=== PATIENT | female | born 1970 | race Caucasian/White ===

== ENCOUNTER → 2020-07-03 | Outpatient (CLI) | payer BC ==
--- NOTE | 2020-07-04 07:23 | US ---
EXAMINATION TYPE: US venous doppler duplex LE RT DATE OF EXAM: 07/03/2020 4:33 PM COMPARISON: NONE CLINICAL HISTORY: I833.893 Varicose veins of bilateral lower extremity. SIDE PERFORMED: Right TECHNIQUE: The lower extremity deep venous system is examined utilizing real time linear array sonog [place] with graded compression, doppler sonography and color-flow sonography. VESSELS IMAGED: Common Femoral Vein Deep Femoral Vein Greater Saphenous Vein * Femoral Vein Popliteal Vein Small Saphenous Vein * Proximal Calf Veins (* superficial vessels) Right Leg: Negative for DVT IMPRESSION: 1. No evidence of deep venous thrombosis within the right lower extremity.
== END | disposition home or self-care (01) ==
LOC: RADUSWWP 16:30
PROVIDERS: ATTEND Family Medicine
DX: I83.893 Varicose veins of bilateral lower extremities with other complications (principal)

== ENCOUNTER 2022-02-07 14:04 | Emergency (ER) | payer BC ==
[2022-02-07] MEDS ORDERED: SODIUM CHLORIDE 0.9% 1,000 ML IV STA (14:30)
[2022-02-07] MEDS ORDERED: SODIUM CHLORIDE 0.9% 500 ML 500 ML IV STA (14:30)
--- NOTE | 2022-02-07 14:49 | XR ---
EXAMINATION TYPE: XR chest 2V DATE OF EXAM: 02/07/2022 COMPARISON: NONE HISTORY: Syncope TECHNIQUE: 2 views FINDINGS: Heart and mediastinum are normal. Lungs are clear. Diaphragm is normal. Bony thorax appears normal. IMPRESSION: Normal chest.
[2022-02-07 15:17] LABS: Basophils % (A) 0 %; Eosinophils # (A) 0.1 k/uL (0-0.7); Eosinophils % (A) 1 %; HCT 45.5 % (34.0-46.0); HGB 15.3 gm/dL (11.4-16.0); Lymphocytes # (A) 1.9 k/uL (1.0-4.8); Lymphocytes % (A) 19 %; MCH 30.3 pg (25.0-35.0); MCHC 33.6 g/dL (31.0-37.0); MCV 90.3 fL (80.0-100.0); Mean Platelet Volume 9.6; Monocytes # (A) 0.4 k/uL (0-1.0); Monocytes % (A) 4 %; Neutrophils # (A) 7.5 k/uL (1.3-7.7); Neutrophils % (A) 74 %; Platelet Count 238 k/uL (150-450); RBC 5.04 m/uL (3.80-5.40); RDW 12.5 % (11.5-15.5); WBC 10.1 k/uL (3.8-10.6)
--- NOTE | 2022-02-07 15:25 | US ---
EXAMINATION TYPE: US venous doppler duplex LE LT DATE OF EXAM: 02/07/2022 3:15 PM COMPARISON: NONE CLINICAL HISTORY: pain. pain in left calf x 1 month. No hx of DVT SIDE PERFORMED: Left TECHNIQUE: The lower extremity deep venous system is examined utilizing real time linear array sonog [place] with graded compression, doppler sonography and color-flow sonography. VESSELS IMAGED: Common Femoral Vein Deep Femoral Vein Greater Saphenous Vein * Femoral Vein Popliteal Vein Small Saphenous Vein * Proximal Calf Veins (* superficial vessels) Left Leg: No evidence of DVT IMPRESSION: No evidence of deep vein thrombosis in the left leg.
[2022-02-07 15:30] LABS: Partial Thromboplastin Time 23.5 sec (22.0-30.0); Prothrombin Time 10.6 sec (9.0-12.0)
--- NOTE | 2022-02-07 15:53 | ED ---
General Adult HPI - General Chief complaint: Syncope Stated complaint: near syncope, chest burning Time Seen by Provider: 02/07/22 14:24 Source: patient, RN notes reviewed Mode of arrival: ambulatory Limitations: no limitations - History of Present Illness Initial comments: 51-year-old female presents emergency Department chief complaint syncopal episode. She states she has not felt well last couple weeks. Patient states that she's had some URI symptoms. Patient was at urgent care prior to ER arrival in which she was tested for COVID-19 was negative. Patient states that she had a near syncopal episode last days for felt very flushed, dizzy states that she sat down symptoms or other resolved. She never loss conscious. She has a chest pain shortness with currently states that she's been having some palpitations. Denies any prior cardiac or lung disease. Denies any medications. She states that she's been very flushed feeling, red in her face, upper chest region. - Related Data Allergies Allergy/AdvReac Type Severity Reaction Status Date / Time No Known Allergies Allergy Verified 02/07/22 14:10 Review of Systems ROS Statement: Those systems with pertinent positive or pertinent negative responses have been documented in the HPI. ROS Other: All systems not noted in ROS Statement are negative. Past Medical History Past Medical History: Hypertension History of Any Multi-Drug Resistant Organisms: None Reported Additional Past Surgical History / Comment(s): kidney stone removal. Past Psychological History: No Psychological Hx Reported Smoking Status: Never smoker Past Alcohol Use History: None Reported Past Drug Use History: None Reported General Exam Limitations: no limitations General appearance: alert, in no apparent distress Head exam: Present: atraumatic, normocephalic, normal inspection Eye exam: Present: normal appearance, PERRL, EOMI. Absent: scleral icterus, conjunctival injection, periorbital swelling ENT exam: Present: normal exam, normal oropharynx, mucous membranes moist Neck exam: Present: normal inspection, full ROM. Absent: tenderness, meningismus, lymphadenopathy Respiratory exam: Present: normal lung sounds bilaterally. Absent: respiratory distress, wheezes, rales, rhonchi, stridor Cardiovascular Exam: Present: normal rhythm, tachycardia, normal heart sounds. Absent: systolic murmur, diastolic murmur, rubs, gallop, clicks GI/Abdominal exam: Present: soft, normal bowel sounds. Absent: distended, tenderness, guarding, rebound, rigid Neurological exam: Present: alert, oriented X3, CN II-XII intact, reflexes normal. Absent: motor sensory deficit Skin exam: Present: warm, dry, intact, normal color. Absent: rash Course Vital Signs 02/07/22 02/07/22 02/07/22 14:08 15:41 15:42 Temperature 97.6 F Pulse Rate 113 H Pulse Rate [ 84 98 Cattle Tester ] Respiratory 20 Rate Blood Pressure 182/94 Blood Pressure 150/98 [Right Arm Sitting] Blood Pressure [Right Arm Standing] Blood Pressure 151/81 [Right Arm Supine] O2 Sat by Pulse 99 Oximetry 02/07/22 02/07/22 15:43 17:47 Temperature 98.3 F Pulse Rate 79 Pulse Rate [ 105 H Cattle Tester ] Respiratory 18 Rate Blood Pressure 133/84 Blood Pressure [Right Arm Sitting] Blood Pressure 161/98 [Right Arm Standing] Blood Pressure [Right Arm Supine] O2 Sat by Pulse 96 Oximetry Medical Decision Making - Medical Decision Making Was pt. sent in by a medical professional or institution? @ Urgent care Did you speak to anyone other than the patient for history? @ None Did you review nursing and triage notes? @ Reviewed and agreed Were old charts reviewed? @ None Differential Diagnosis? @Syncope, near syncope, vertigo, dizziness, upper extremity infection, PE, DVT, hypoglycemia this is not meant to be an all-inclusive list. EKG interpreted by me (3pts min.)? @ EKG performed at 15:21 sinus rhythm rate of 87 MD 133 QRS 85 QT/QTC 339/383 X-rays interpreted by me (1pt min.)? @ Chest x-ray unremarkable CT interpreted by me (1pt min.)? @ [none] U/S interpreted by me (1pt. min.)? @ Ultrasound left leg no ACUTE DVT What testing was considered but not performed? (CT, X-rays, U/S, labs)? Why? @ none What meds were considered but not given? Why? @ [none] Did you discuss the management of the patient with other professionals? @ Attending dr carlson Did you reconcile home meds? @ [none] Was smoking cessation discussed for >3mins.? @ [none] Was critical care preformed (if so, how long)? @ [none] Were there social determinants of health that impacted care today? How? (Homelessness, low income, unemployed, alcoholism, drug addiction, transportation, low edu. Level, literacy, decrease access to med. care, shelter, rehab)? @ None Was there de-escalation of care discussed even if they declined? (Discuss DNR or withdrawal of care, Hospice)? @ No What co-morbidities impacted this encounter? (DM, HTN, Smoking, COPD, CAD, Cancer, CVA, Hep., AIDS, mental health diagnosis, sleep apnea, morbid obesity)? @ None Was patient admitted / discharged? @ [hospital course] Undiagnosed new problem with uncertain prognosis? @ [none] Drug Therapy requiring intensive monitoring for toxicity (Heparin, Nitro, Insulin, Cardizem)? @ [none] Were any procedures done? @ [none] Diagnosis/symptom? @Near syncope Acute, or Chronic, or Acute on Chronic? @Acute Uncomplicated (without systemic symptoms) or Complicated (systemic symptoms)? @ [Unconjugated Side effects of treatment? @ [none] Exacerbation, Progression, or Severe Exacerbation] @ [no] Poses a threat to life or bodily function? @ [no] Diagnosis/symptom? @ -Left knee pain Acute, or Chronic, or Acute on Chronic? @Acute Uncomplicated (without systemic symptoms) or Complicated (systemic symptoms)? @ -Located Side effects of treatment? @ -[none] Exacerbation, Progression, or Severe Exacerbation] @ -[no] Poses a threat to life or bodily function? @ -[no] - Lab Data Result diagrams: 02/07/22 14:55 02/07/22 15:35 Lab Results 02/07/22 02/07/22 02/07/22 Range/Units 14:55 14:55 14:55 WBC 10.1 (3.8-10.6) k/uL RBC 5.04 (3.80-5.40) m/uL Hgb 15.3 (11.4-16.0) gm/dL Hct 45.5 (34.0-46.0) % MCV 90.3 (80.0-100.0) fL MCH 30.3 (25.0-35.0) pg MCHC 33.6 (31.0-37.0) g/dL RDW 12.5 (11.5-15.5) % Plt Count 238 (150-450) k/uL MPV 9.6 Neutrophils % 74 % Lymphocytes % 19 % Monocytes % 4 % Eosinophils % 1 % Basophils % 0 % Neutrophils # 7.5 (1.3-7.7) k/uL Lymphocytes # 1.9 (1.0-4.8) k/uL Monocytes # 0.4 (0-1.0) k/uL Eosinophils # 0.1 (0-0.7) k/uL Basophils # 0.0 (0-0.2) k/uL PT 10.6 (9.0-12.0) sec INR 1.0 (<1.2) APTT 23.5 (22.0-30.0) sec D-Dimer 0.30 (<0.60) mg/L FEU Sodium (137-145) mmol/L Potassium (3.5-5.1) mmol/L Chloride (98-107) mmol/L Carbon Dioxide (22-30) mmol/L Anion Gap mmol/L BUN (7-17) mg/dL Creatinine (0.52-1.04) mg/dL Est GFR (CKD-EPI)AfAm (>60 ml/min/1.73 sqM) Est GFR (CKD-EPI)NonAf (>60 ml/min/1.73 sqM) Glucose (74-99) mg/dL Calcium (8.4-10.2) mg/dL Magnesium (1.6-2.3) mg/dL Total Bilirubin (0.2-1.3) mg/dL AST (14-36) U/L ALT (4-34) U/L Alkaline Phosphatase (38-126) U/L Troponin I (0.000-0.034) ng/mL Total Protein (6.3-8.2) g/dL Albumin (3.5-5.0) g/dL Influenza Type A (PCR) Not Detected (Not Detectd) Influenza Type B (PCR) Not Detected (Not Detectd) RSV (PCR) Not Detected (Not Detectd) SARS-CoV-2 (PCR) Not Detected (Not Detectd) 02/07/22 02/07/22 Range/Units 15:35 15:35 WBC (3.8-10.6) k/uL RBC (3.80-5.40) m/uL Hgb (11.4-16.0) gm/dL Hct (34.0-46.0) % MCV (80.0-100.0) fL MCH (25.0-35.0) pg MCHC (31.0-37.0) g/dL RDW (11.5-15.5) % Plt Count (150-450) k/uL MPV Neutrophils % % Lymphocytes % % Monocytes % % Eosinophils % % Basophils % % Neutrophils # (1.3-7.7) k/uL Lymphocytes # (1.0-4.8) k/uL Monocytes # (0-1.0) k/uL Eosinophils # (0-0.7) k/uL Basophils # (0-0.2) k/uL PT (9.0-12.0) sec INR (<1.2) APTT (22.0-30.0) sec D-Dimer (<0.60) mg/L FEU Sodium 138 (137-145) mmol/L Potassium 3.9 (3.5-5.1) mmol/L Chloride 106 (98-107) mmol/L Carbon Dioxide 24 (22-30) mmol/L Anion Gap 8 mmol/L BUN 11 (7-17) mg/dL Creatinine 0.57 (0.52-1.04) mg/dL Est GFR (CKD-EPI)AfAm >90 (>60 ml/min/1.73 sqM) Est GFR (CKD-EPI)NonAf >90 (>60 ml/min/1.73 sqM) Glucose 124 H (74-99) mg/dL Calcium 9.5 (8.4-10.2) mg/dL Magnesium 1.9 (1.6-2.3) mg/dL Total Bilirubin 0.4 (0.2-1.3) mg/dL AST 32 (14-36) U/L ALT 27 (4-34) U/L Alkaline Phosphatase 93 (38-126) U/L Troponin I <0.012 (0.000-0.034) ng/mL Total Protein 7.2 (6.3-8.2) g/dL Albumin 4.5 (3.5-5.0) g/dL Influenza Type A (PCR) (Not Detectd) Influenza Type B (PCR) (Not Detectd) RSV (PCR) (Not Detectd) SARS-CoV-2 (PCR) (Not Detectd) Disposition Clinical Impression: Near syncope, Left knee pain Disposition: HOME SELF-CARE Condition: Stable Instructions (If sedation given, give patient instructions): Near Syncope (ED) Additional Instructions: Please return to the Emergency Department if symptoms worsen or any other concerns. Is patient prescribed a controlled substance at d/c from ED?: No Referrals: Marcial Prescott DO [Primary Care Provider] - 1-2 days Chantel Yanes DO [Doctor of Osteopathic Medicine] - 1-2 days Time of Disposition: 17:31
[2022-02-07 15:59] LABS: ALT 27 U/L (4-34); AST 32 U/L (14-36); African American GFR (CKD) >90 (>60 ml/min/1.73 sqM); Albumin 4.5 g/dL (3.5-5.0); Alkaline Phosphatase 93 U/L (38-126); Anion Gap 8 mmol/L; Blood Urea Nitrogen 11 mg/dL (7-17); Calcium 9.5 mg/dL (8.4-10.2); Carbon Dioxide 24 mmol/L (22-30); Chloride 106 mmol/L (98-107); Glucose 124 mg/dL (74-99); Magnesium 1.9 mg/dL (1.6-2.3); Non-African American GFR(CKD) >90 (>60 ml/min/1.73 sqM); Potassium 3.9 mmol/L (3.5-5.1); Sodium 138 mmol/L (137-145); Total Bilirubin 0.4 mg/dL (0.2-1.3); Total Protein 7.2 g/dL (6.3-8.2)
[2022-02-07 17:51] VITALS: BP 133/84; PULSE 79; RESP 18; TEMP 98.3
== END 2022-02-07 17:48 | disposition home or self-care (01) ==
LOC: EC 14:04
DX: R55 Syncope and collapse (principal); M25.562 Pain in left knee; I10 Essential (primary) hypertension; Z20.822 Contact with and (suspected) exposure to COVID-19
CPT/HCPCS: 36415; 71046; 80053; 83735; 84484; 85025; 85379; 85610; 85730; 87636; 93005; 96360; 99284

== ENCOUNTER → 2022-02-26 | Outpatient (CLI) | payer BC ==
--- NOTE | 2022-02-26 17:08 | US ---
EXAMINATION TYPE: US venous doppler duplex UE LT DATE OF EXAM: 02/26/2022 COMPARISON: NONE CLINICAL HISTORY: LUE; I80.9. Left focal redness with rope feeling at the area of recent IV site SIDE PERFORMED: Left Left Arm: Negative for DVT. Superficial thrombosis visualized in left posterior wrist vein. This ve in is a branch of the cephalic vein. Cephalic vein is patent. Grayscale, color doppler, spectral doppler imaging performed of the deep veins of the upper extremiti es. There is normal flow, compressibility and vascular waveforms within the deep venous system. IMPRESSION: 1. No evidence of deep vein thrombus of the left lower externally. 2. Superficial thrombophlebitis in the left posterior wrist vein thought to be a branch of the cepha lic vein. Cephalic vein is patent.
== END | disposition home or self-care (01) ==
LOC: RADUSWWP 16:16
PROVIDERS: ATTEND Family Medicine
DX: I80.9 Phlebitis and thrombophlebitis of unspecified site (principal)

== ENCOUNTER 2022-02-28 23:52 | Observation (INO) | payer BC ==
[2022-03-01] MEDS ORDERED: SODIUM CHLORIDE 0.9% 1,000 ML IV STA (00:39)
[2022-03-01] MEDS ORDERED: hydrOXYzine HCL 25 MG TAB PO STA (01:03)
[2022-03-01] MEDS ORDERED: FAMOTIDINE 20 MG/2 ML VIAL IV STA (01:03)
--- NOTE | 2022-03-01 01:05 | ED ---
Recheck HPI - General Chief Complaint: Dizziness Stated Complaint: feels like passing out Time Seen by Provider: 03/01/22 00:39 Source: patient, RN notes reviewed, old records reviewed Mode of arrival: ambulatory Limitations: no limitations - History of Present Illness Initial Comments: This is a 52-year-old female DF for evaluation. Patient presents us today for evaluation of some dizziness and lightheadedness feels like she may pass out with her main complaint being her face neck and ears are very flushed and hot and warm to the touch. This is an issue she had a few weeks ago and she presented to the ER was admitted to the hospital and had no acute cause of findings. Patient was doing fine for a few weeks at home with the symptoms have returned. Denies drugs or alcohol. No headache chest pain shortness breath or abdominal pain. No recent cough or congestion fevers or travel history MD Complaint: other (Increased flushing of face neck and years) -: hour(s) Returns Today for: other (Worsening warmth and erythema) Symptoms Since Prior Visit: no new symptoms Associated Symptoms: none Treatments Prior to Arrival: other (0) - Related Data Allergies Allergy/AdvReac Type Severity Reaction Status Date / Time No Known Allergies Allergy Verified 03/01/22 00:03 Review of Systems ROS Statement: Those systems with pertinent positive or pertinent negative responses have been documented in the HPI. ROS Other: All systems not noted in ROS Statement are negative. Past Medical History Past Medical History: Hypertension History of Any Multi-Drug Resistant Organisms: None Reported Additional Past Surgical History / Comment(s): kidney stone removal. Past Psychological History: No Psychological Hx Reported Smoking Status: Never smoker Past Alcohol Use History: None Reported Past Drug Use History: None Reported General Exam Limitations: no limitations General appearance: alert, in no apparent distress Head exam: Present: atraumatic, normocephalic, normal inspection Eye exam: Present: normal appearance, PERRL, EOMI. Absent: scleral icterus, conjunctival injection, periorbital swelling ENT exam: Present: normal exam, mucous membranes moist Neck exam: Present: normal inspection. Absent: tenderness, meningismus, lymphadenopathy Respiratory exam: Present: normal lung sounds bilaterally. Absent: respiratory distress, wheezes, rales, rhonchi, stridor Cardiovascular Exam: Present: regular rate, normal rhythm, normal heart sounds. Absent: systolic murmur, diastolic murmur, rubs, gallop, clicks GI/Abdominal exam: Present: soft, normal bowel sounds. Absent: distended, tenderness, guarding, rebound, rigid Extremities exam: Present: normal inspection, full ROM, normal capillary refill. Absent: tenderness, pedal edema, joint swelling, calf tenderness Back exam: Present: normal inspection Neurological exam: Present: alert, oriented X3, CN II-XII intact Psychiatric exam: Present: normal affect, normal mood Skin exam: Present: warm, dry, intact, normal color. Absent: rash Course Vital Signs 03/01/22 00:03 Temperature 98 F Pulse Rate 95 Respiratory 18 Rate Blood Pressure 156/107 O2 Sat by Pulse 99 Oximetry - Reevaluation(s) Reevaluation #1: 03/01/22 01:03 Medical record is reviewed Reevaluation #2: 03/01/22 02:15 Patient has no improvement in symptoms here in the ER, very anxious Reevaluation #3: 03/01/22 02:15 Patient informed results and questions answered Reevaluation #4: 03/01/22 01:05 Differential Syncope: Valvular disease, hypertrophic cardiomyopathy, pulmonary embolism, tamponade, tachycardia, bradycardia, MD, hypovolemia, hemorrhage, dissection, anemia, intracranial hemorrhage, seizure, hypoglycemia, carbon monoxide poisoning, this is not meant to be an all-inclusive list. Reevaluation #5: 03/01/22 01:05 Was pt. sent in by a medical professional or institution? @ -nono Did you speak to anyone other than the patient for history? @ -no Did you review nursing and triage notes? @ -agree Were old charts reviewed? @ -no Differential Diagnosis? @ -no EKG interpreted by me (3pts min.)? @ -[none] X-rays interpreted by me (1pt min.)? @ -[none] CT interpreted by me (1pt min.)? @ -[none] U/S interpreted by me (1pt. min.)? @ -[none] What testing was considered but not performed? (CT, X-rays, U/S, labs)? Why? @ no What meds were considered but not given? Why? @ -[none] Did you discuss the management of the patient with other professionals? @ -no Did you reconcile home meds? @ -[none] Was smoking cessation discussed for >3mins.? @ -[none] Was critical care preformed (if so, how long)? @ -[none] Were there social determinants of health that impacted care today? How? (Homelessness, low income, unemployed, alcoholism, drug addiction, transportation, low edu. Level, literacy, decrease access to med. care, [facility], rehab)? @ -no Was there de-escalation of care discussed even if they declined? (Discuss DNR or withdrawal of care, Hospice)? @ -no What co-morbidities impacted this encounter? (DM, HTN, Smoking, COPD, CAD, Cancer, CVA, Hep., AIDS, mental health diagnosis, sleep apnea, morbid obesity)? @ -no Was patient admitted / discharged? @ -dc Undiagnosed new problem with uncertain prognosis? @ -[none] Drug Therapy requiring intensive monitoring for toxicity (Heparin, Nitro, Insulin, Cardizem)? @ -[none] Were any procedures done? @ -[none] Diagnosis/symptom? @ -[default] Acute, or Chronic, or Acute on Chronic? @ -[default] Uncomplicated (without systemic symptoms) or Complicated (systemic symptoms)? @ -[default] Side effects of treatment? @ -[none] Exacerbation, Progression, or Severe Exacerbation] @ -[no] Poses a threat to life or bodily function? @ -[no] 03/01/22 02:16 - Consultations Consultation #1: Spoke with [facility] admitting physicians regarding admission there agreeable Medical Decision Making - Medical Decision Making 52 female DEL with a near syncopal event lightheaded dizziness and flushing. Facial flushing, patient feels very anxious and near syncopal when this happens. Symptoms are persistent here in the ER and do not resolve. Patient be a dmitted for further monitoring - Lab Data Result diagrams: 03/01/22 00:55 03/01/22 00:55 Lab Results 03/01/22 03/01/22 03/01/22 Range/Units 00:55 00:55 00:55 WBC 9.3 (3.8-10.6) k/uL RBC 5.30 (3.80-5.40) m/uL Hgb 15.3 (11.4-16.0) gm/dL Hct 47.5 H (34.0-46.0) % MCV 89.6 (80.0-100.0) fL MCH 28.9 (25.0-35.0) pg MCHC 32.2 (31.0-37.0) g/dL RDW 12.9 (11.5-15.5) % Plt Count 210 (150-450) k/uL MPV 9.0 Neutrophils % 68 % Lymphocytes % 23 % Monocytes % 5 % Eosinophils % 1 % Basophils % 1 % Neutrophils # 6.3 (1.3-7.7) k/uL Lymphocytes # 2.2 (1.0-4.8) k/uL Monocytes # 0.5 (0-1.0) k/uL Eosinophils # 0.1 (0-0.7) k/uL Basophils # 0.1 (0-0.2) k/uL PT 10.3 (9.0-12.0) sec INR 1.0 (<1.2) APTT 23.4 (22.0-30.0) sec Sodium 137 (137-145) mmol/L Potassium 3.8 (3.5-5.1) mmol/L Chloride 107 (98-107) mmol/L Carbon Dioxide 20 L (22-30) mmol/L Anion Gap 10 mmol/L BUN 16 (7-17) mg/dL Creatinine 0.59 (0.52-1.04) mg/dL Est GFR (CKD-EPI)AfAm >90 (>60 ml/min/1.73 sqM) Est GFR (CKD-EPI)NonAf >90 (>60 ml/min/1.73 sqM) Glucose 120 H (74-99) mg/dL Calcium 9.6 (8.4-10.2) mg/dL Phosphorus 3.2 (2.5-4.5) mg/dL Magnesium 2.1 (1.6-2.3) mg/dL Total Bilirubin 0.5 (0.2-1.3) mg/dL AST 22 (14-36) U/L ALT 18 (4-34) U/L Alkaline Phosphatase 89 (38-126) U/L Troponin I (0.000-0.034) ng/mL NT-Pro-B Natriuret Pep pg/mL Total Protein 7.2 (6.3-8.2) g/dL Albumin 4.4 (3.5-5.0) g/dL 01/15/23 01/15/23 Range/Units 00:55 01:10 WBC (3.8-10.6) k/uL RBC (3.80-5.40) m/uL Hgb (11.4-16.0) gm/dL Hct (34.0-46.0) % MCV (80.0-100.0) fL MCH (25.0-35.0) pg MCHC (31.0-37.0) g/dL RDW (11.5-15.5) % Plt Count (150-450) k/uL MPV Neutrophils % % Lymphocytes % % Monocytes % % Eosinophils % % Basophils % % Neutrophils # (1.3-7.7) k/uL Lymphocytes # (1.0-4.8) k/uL Monocytes # (0-1.0) k/uL Eosinophils # (0-0.7) k/uL Basophils # (0-0.2) k/uL PT (9.0-12.0) sec INR (<1.2) APTT (22.0-30.0) sec Sodium (137-145) mmol/L Potassium (3.5-5.1) mmol/L Chloride (98-107) mmol/L Carbon Dioxide (22-30) mmol/L Anion Gap mmol/L BUN (7-17) mg/dL Creatinine (0.52-1.04) mg/dL Est GFR (CKD-EPI)AfAm (>60 ml/min/1.73 sqM) Est GFR (CKD-EPI)NonAf (>60 ml/min/1.73 sqM) Glucose (74-99) mg/dL Calcium (8.4-10.2) mg/dL Phosphorus (2.5-4.5) mg/dL Magnesium (1.6-2.3) mg/dL Total Bilirubin (0.2-1.3) mg/dL AST (14-36) U/L ALT (4-34) U/L Alkaline Phosphatase (38-126) U/L Troponin I <0.012 (0.000-0.034) ng/mL NT-Pro-B Natriuret Pep 73 pg/mL Total Protein (6.3-8.2) g/dL Albumin (3.5-5.0) g/dL - EKG Data -: EKG Interpreted by Me (EKG is sinus 86 WA 136 QRS 89 QTC 396) Disposition Clinical Impression: Near syncope, Facial flushing, Anxiety Disposition: ADMITTED IP TO THIS HOSP Condition: Good Is patient prescribed a controlled substance at d/c from ED?: No Referrals: Marcial Prescott DO [Primary Care Provider] - 1-2 days Time of Disposition: 02:20
[2022-03-01 01:10] LABS: Basophils # (A) 0.1 k/uL (0-0.2); Basophils % (A) 1 %; Eosinophils # (A) 0.1 k/uL (0-0.7); Eosinophils % (A) 1 %; HCT 47.5 % (34.0-46.0); HGB 15.3 gm/dL (11.4-16.0); Lymphocytes # (A) 2.2 k/uL (1.0-4.8); Lymphocytes % (A) 23 %; MCH 28.9 pg (25.0-35.0); MCHC 32.2 g/dL (31.0-37.0); MCV 89.6 fL (80.0-100.0); Monocytes # (A) 0.5 k/uL (0-1.0); Monocytes % (A) 5 %; Neutrophils # (A) 6.3 k/uL (1.3-7.7); Neutrophils % (A) 68 %; Platelet Count 210 k/uL (150-450); RDW 12.9 % (11.5-15.5); WBC 9.3 k/uL (3.8-10.6)
[2022-03-01 01:14] LABS: Partial Thromboplastin Time 23.4 sec (22.0-30.0); Prothrombin Time 10.3 sec (9.0-12.0)
[2022-03-01 01:18] LABS: ALT 18 U/L (4-34); AST 22 U/L (14-36); African American GFR (CKD) >90 (>60 ml/min/1.73 sqM); Albumin 4.4 g/dL (3.5-5.0); Alkaline Phosphatase 89 U/L (38-126); Anion Gap 10 mmol/L; Blood Urea Nitrogen 16 mg/dL (7-17); Calcium 9.6 mg/dL (8.4-10.2); Carbon Dioxide 20 mmol/L (22-30); Chloride 107 mmol/L (98-107); Glucose 120 mg/dL (74-99); Magnesium 2.1 mg/dL (1.6-2.3); Non-African American GFR(CKD) >90 (>60 ml/min/1.73 sqM); Phosphorus 3.2 mg/dL (2.5-4.5); Potassium 3.8 mmol/L (3.5-5.1); Sodium 137 mmol/L (137-145); Total Bilirubin 0.5 mg/dL (0.2-1.3); Total Protein 7.2 g/dL (6.3-8.2)
[2022-03-01] MEDS ORDERED: NALOXONE 0.4 MG/ML 1 ML VIAL IV PRN (02:17)
[2022-03-01] MEDS: SODIUM CHLORIDE 0.9% 1,000 ML IV SCH ×2 (02:50→12:07)
--- NOTE | 2022-03-01 13:21 | P.CRDCN ---
History of Present Illness Consult date: 03/01/22 History of present illness: Patient is a pleasant 52-year-old female with a known history of hypertension. Patient does not, with a policy analyst. Patient can no complaints of dizziness and lightheaded. She also had flushing of the face neck and ears. She denies complete syncope Patient was seen last week in the ER for similar symptoms. She was evaluated and discharged home. Today her EKG shows sinus rhythm with borderline left axis deviation. She also had an ultrasound of the left lower extremity which was negative for DVT and an ultrasound of the risks which showed a superficial thrombophlebitis of the left wrist of the cephalic vein which is patent. Troponin has been negative. We'll obtain a 2-D echocardiogram and dobutamine stress echo Review of Systems REVIEW OF SYSTEMS At the time of my exam: CONSTITUTIONAL: Denies fever or chills. EYES: Negative for vision changes ENT: Negative for hearing loss CARDIOVASCULAR: Denies chest pain, shortness of breath, diaphoresis, orthopnea, PND or palpitations. VASCULAR: Denies edema RESPIRATORY: Denies cough. GASTROINTESTINAL: Denies abdominal pain, diarrhea, constipation, nausea or vomiting. MUSCULOSKELETAL: Denies myalgias. NEUROLOGIC: Denies numbness, tingling, headache or weakness. ENDOCRINE: Denies fatigue, weight change, polydipsia or polyurina. GENITOURINARY: Denies burning, hematuria or urgency with micturation. HEMATOLOGIC: Denies history of anemia or bleeding. DERMATOLOGY: Denies rash or skin sores PSYCH: Negative for depression or hallucinations. Past Medical History Past Medical History: Hypertension History of Any Multi-Drug Resistant Organisms: None Reported Additional Past Surgical History / Comment(s): kidney stone removal. Past Anesthesia/Blood Transfusion Reactions: No Reported Reaction Past Psychological History: Anxiety Smoking Status: Never smoker Past Alcohol Use History: None Reported Past Drug Use History: None Reported Medications and Allergies Home Medications Medication Instructions Recorded Confirmed Type Losartan Potassium 100 mg PO DIRECTED 03/01/22 03/01/22 History amLODIPine [Norvasc] 5 mg PO DAILY 03/01/22 03/01/22 History Allergies Allergy/AdvReac Type Severity Reaction Status Date / Time No Known Allergies Allergy Verified 03/01/22 11:52 Physical Exam Vitals: Vital Signs Temp Pulse Pulse Pulse Pulse Resp BP 03/01/22 12:00 65 16 03/01/22 08:32 03/01/22 08:00 88 63 16 03/01/22 03:55 98.3 F 72 18 03/01/22 02:46 97.8 F 72 18 151/93 03/01/22 00:03 98 F 95 18 156/107 BP BP BP Pulse Ox 03/01/22 12:00 134/78 97 03/01/22 08:32 98 03/01/22 08:00 132/92 131/67 100 03/01/22 03:55 134/85 98 03/01/22 02:46 98 03/01/22 00:03 99 Intake and Output 02/28/22 03/01/22 03/01/22 22:59 06:59 14:59 Intake Total 180 Balance 180 Intake: Oral 180 Other: # Voids 1 Weight 106.594 kg General: The patient is awake and alert, in no distress, and does not appear acutely ill. Skin: Skin is warm and dry and no rashes or lesions are noted. Eye: Pupils are equal, round and reactive to light, extra-ocular movements are intact; there is normal conjunctiva bilaterally. Ears, nose, mouth and throat: There are moist mucous membranes and no oral lesions. Neck: The neck is supple, there is no tenderness or JVD. Cardiovascular: There is irregular regular rate and rhythm. No murmur, rub or gallop is appreciated. Respiratory: Lungs are clear to auscultation, respirations are non-labored, breath sounds are equal. Gastrointestinal: Soft, non-distended, non-tender abdomen without masses or organomegaly noted. There is no rebound or guarding present. Bowel sounds are unremarkable. Back: There is no tenderness to palpation in the midline. There is no obvious deformity. Musculoskeletal: Normal ROM, no tenderness, There is no pedal edema. There is no calf tenderness or swelling. Extremities: Mild bilateral pitting edema Vascular: Femoral pulse is normal. Posterior tibial pulses are normal .Dorsalis pedis is palpable. Neurological: CN II-XII intact. There are no obvious motor or sensory deficits. Speech is normal. Psychiatric: Cooperative, appropriate mood & affect, normal judgment Results 03/01/22 00:55 03/01/22 00:55 Cardiac Enzymes 03/01/22 03/01/22 Range/Units 00:55 00:55 AST 22 (14-36) U/L Troponin I <0.012 (0.000-0.034) ng/mL Coagulation 03/01/22 Range/Units 00:55 PT 10.3 (9.0-12.0) sec APTT 23.4 (22.0-30.0) sec CBC 03/01/22 Range/Units 00:55 WBC 9.3 (3.8-10.6) k/uL RBC 5.30 (3.80-5.40) m/uL Hgb 15.3 (11.4-16.0) gm/dL Hct 47.5 H (34.0-46.0) % Plt Count 210 (150-450) k/uL Comprehensive Metabolic Panel 03/01/22 Range/Units 00:55 Sodium 137 (137-145) mmol/L Potassium 3.8 (3.5-5.1) mmol/L Chloride 107 (98-107) mmol/L Carbon Dioxide 20 L (22-30) mmol/L BUN 16 (7-17) mg/dL Creatinine 0.59 (0.52-1.04) mg/dL Glucose 120 H (74-99) mg/dL Calcium 9.6 (8.4-10.2) mg/dL AST 22 (14-36) U/L ALT 18 (4-34) U/L Alkaline Phosphatase 89 (38-126) U/L Total Protein 7.2 (6.3-8.2) g/dL Albumin 4.4 (3.5-5.0) g/dL Current Medications Generic Name Dose Route Start Last Admin Trade Name Freq PRN Reason Stop Dose Admin Losartan Potassium 100 mg 03/01/22 13:30 Losartan 50 Mg Tab PO DAILY YESENIA Naloxone HCl 0.2 mg 03/01/22 02:17 Naloxone 0.4 Mg/Ml 1 Ml Vial IV Q2M PRN Opioid Reversal Intake and Output 02/28/22 03/01/22 03/01/22 22:59 06:59 14:59 Intake Total 180 Balance 180 Intake: Oral 180 Other: # Voids 1 Weight 106.594 kg 03/01/22 00:55 03/01/22 00:55 Assessment and Plan Assessment: Near-syncope without complete loss of consciousness known history of hypertension Plan: Will obtain a 2-D echocardiogram Obtain a dobutamine stress echo Continue with current cardiac medications Continue with telemetry monitoring Further recommendations based on clinical course The above impression and plan of care have been discussed and directed by the signing physician. Chloe Che, nurse practitioner, acting as scribe for signing physician.
--- NOTE | 2022-03-01 13:50 | P.HPIM ---
History of Present Illness Patient is a 16-year-old female came in with complains of lightheadedness and flushing of face and ears and the flushing sensation in the chest but not chest pain. Patient blood pressure is within normalpatient is on amlodipine and losartan at home orthostatic vitals are negative. Patient in any diarrhea, nausea vomiting. Patient had ultrasound of the left lower extremity which is negative for DVT and had some superficial thrombophlebitis of the left wrist. 2-D echo is being obtained etiology evaluated the patient EKG did not show any significant abnormality cardiology recommended a stress test. REVIEW OF SYSTEMS: CONSTITUTIONAL: No fever, no malaise, no fatigue. HEENT: No recent visual problems or hearing problems. Denied any sore throat. CARDIOVASCULAR: No chest pain, orthopnea, PND, no palpitations, no syncope. PULMONARY: No shortness of breath, no cough, no hemoptysis. GASTROINTESTINAL: No diarrhea, no nausea, no vomiting, no abdominal pain. NEUROLOGICAL: No headaches, no weakness, no numbness. HEMATOLOGICAL: Denies any bleeding or petechiae. GENITOURINARY: Denies any burning micturition, frequency, or urgency. MUSCULOSKELETAL/RHEUMATOLOGICAL: Denies any joint pain, swelling, or any muscle pain. ENDOCRINE: Denies any polyuria or polydipsia. The rest of the 14-point review of systems is negative. PHYSICAL EXAMINATION: GENERAL: The patient is alert and oriented x3, not in any acute distress. Well developed, well nourished. HEENT: Pupils are round and equally reacting to light. EOMI. No scleral icterus. No conjunctival pallor. Normocephalic, atraumatic. No pharyngeal erythema. No thyromegaly. CARDIOVASCULAR: S1 and S2 present. No murmurs, rubs, or gallops. PULMONARY: Chest is clear to auscultation, no wheezing or crackles. ABDOMEN: Soft, nontender, nondistended, normoactive bowel sounds. No palpable organomegaly. MUSCULOSKELETAL: No joint swelling or deformity. EXTREMITIES: No cyanosis, clubbing, or pedal edema. NEUROLOGICAL: Gross neurological examination did not reveal any focal deficits. SKIN: No rashes. Assessment and plan -Near-syncope, patient blood pressure is stable without any hypotension or positive orthostatics patient is being monitored on telemetry and echo cardiac and is being obtained cardiology found a stress test troponins are negative. -Hypertension patient blood pressure is bit elevated now as she didn't receive her morning medications patient was started on losartan hold off on amlodipine monitor blood pressure DVT prophylaxis: Early ambulation Past Medical History Past Medical History: Hypertension History of Any Multi-Drug Resistant Organisms: None Reported Additional Past Surgical History / Comment(s): kidney stone removal. Past Anesthesia/Blood Transfusion Reactions: No Reported Reaction Past Psychological History: Anxiety Smoking Status: Never smoker Past Alcohol Use History: None Reported Past Drug Use History: None Reported Medications and Allergies Home Medications Medication Instructions Recorded Confirmed Type Losartan Potassium 100 mg PO DIRECTED 03/01/22 03/01/22 History amLODIPine [Norvasc] 5 mg PO DAILY 03/01/22 03/01/22 History Allergies Allergy/AdvReac Type Severity Reaction Status Date / Time No Known Allergies Allergy Verified 03/01/22 11:52 Physical Exam Vitals: Vital Signs Temp Pulse Pulse Pulse Pulse Resp BP 03/01/22 12:00 65 16 03/01/22 08:32 03/01/22 08:00 88 63 16 03/01/22 03:55 98.3 F 72 18 03/01/22 02:46 97.8 F 72 18 151/93 03/01/22 00:03 98 F 95 18 156/107 BP BP BP Pulse Ox 03/01/22 12:00 134/78 97 03/01/22 08:32 98 03/01/22 08:00 132/92 131/67 100 03/01/22 03:55 134/85 98 03/01/22 02:46 98 03/01/22 00:03 99 Intake and Output 02/28/22 03/01/22 03/01/22 22:59 06:59 14:59 Intake Total 180 Balance 180 Intake: Oral 180 Other: # Voids 1 Weight 106.594 kg Results CBC & Chem 7: 03/01/22 00:55 03/01/22 00:55 Labs: Abnormal Lab Results - Last 24 Hours (Table) 03/01/22 03/01/22 Range/Units 00:55 00:55 Hct 47.5 H (34.0-46.0) % Carbon Dioxide 20 L (22-30) mmol/L Glucose 120 H (74-99) mg/dL Thrombosis Risk Factor Assmnt - Choose All That Apply Any of the Below Risk Factors Present?: Yes Each Factor Represents 1 point: Age 41-60 years Thrombosis Risk Factor Assessment Total Risk Factor Score: 1 Thrombosis Risk Factor Assessment Level: Low Risk
[2022-03-01] MEDS: LOSARTAN 50 MG TAB PO SCH (16:32)
[2022-03-02] MEDS ORDERED: DOBUTamine DRIP for NUC MED 500 MG in DEXTROSE/WATER 1 250ML.BAG IV PRN (07:00)
[2022-03-02 08:39] VITALS: RESP 16; TEMP 97.9
[2022-03-02] MEDS: LOSARTAN 50 MG TAB PO SCH (12:48)
--- NOTE | 2022-03-02 14:04 | P.PN ---
Subjective Progress Note Date: 03/02/22 History of present illness: Patient is a pleasant 52-year-old female with a known history of hypertension. Patient does not, with a management information systems director. Patient can no complaints of dizziness and lightheaded. She also had flushing of the face neck and ears. She denies complete syncope Patient was seen last week in the ER for similar symptoms. She was evaluated and discharged home. Today her EKG shows sinus rhythm with borderline left axis deviation. She also had an ultrasound of the left lower extremity which was negative for DVT and an ultrasound of the risks which showed a superficial thrombophlebitis of the left wrist of the cephalic vein which is patent. Troponin has been negative. We'll obtain a 2-D echocardiogram and dobutamine stress echo 03/02 Patient denies ever having any chest pain. She states she has episodes where her chest neck and face become red. She states this has happened on a couple occasions. She is scheduled for stress test today. Repeat troponin negative. ProBNP 73. Orthostatic vital signs were negative. Blood pressure 111/79, heart rate 75. Physical examination: Gen: This is a 52-year-old female. She is sitting on the edge of bed and appears to be comfortable and in no acute distress VS: reviewed HEENT: Head is atraumatic, normocephalic. Pupils equal, round. Sclerae is anicteric. NECK: Supple. No JVD. No lymphadenopathy. No thyromegaly. LUNGS: Clear to auscultation. No wheezes or rhonchi. No intercostal retractions. HEART: Regular rate and rhythm. No murmur. ABDOMEN: Soft. Bowel sounds are present. No masses. No tenderness. EXTREMITIES: No pedal edema. No calf tenderness. NEUROLOGICAL: Patient is awake, alert and oriented x3. Cranial nerves 2 through 12 are grossly intact. Assessment: Near-syncopal episode without loss of consciousness Hypertension Plan: Obtain 2-D echocardiogram and Doppler study to assess cardiac structure and function Obtain dobutamine stress echo Continue current cardiac medications *Echocardiogram is within normal limits, patient is cleared for discharge home today. Nurse practitioner note has been reviewed, I agree with documented findings and plan of care. Patient was seen and examined. Objective - Vital Signs Vital signs: Vital Signs Temp 97.9 F 03/02/22 08:00 Pulse 70 03/02/22 08:00 Resp 16 01/16/23 08:00 BP 136/96 03/02/22 08:00 Pulse Ox 100 03/02/22 08:00 FiO2 Intake & Output 03/01/22 03/02/22 03/02/22 18:59 06:59 18:59 Intake Total 360 Balance 360 Intake: Intake, IV Titration 0 Amount Sodium Chloride 0.9% 1, 0 000 ml @ 130 mls/hr IV . [id number] [facility] Rx#:[id number] Oral 360 Other: # Voids 1 - Labs CBC & Chem 7: 03/01/22 00:55 03/01/22 00:55
--- NOTE | 2022-03-02 16:26 | CA ---
Dobutamine Stress Echocardiogram Report Leisa Grant Age: 52 Gender: F : 1970 Exam Date: 03/02/2022 11:26 Exam Location: [place] [facility] Ordering Physician: Chloe Che [facility] Referring Physician: MARIA INES, Willower: BRIAN Technologist: Ht (in): 69 Wt (lb): 235 Procedure CPT: Indication: Chest Pain ICD-9 Codes: Rhythm: Patient History: PALPITATIONS, HTN, FAMILY HX OF HEART DISEASE Cardiac Medications: Medications in past 24 hours: Contrast: Total Dose (mL): Stress Results Protocol: Peak Dose (???g/kg/min): Duration (min:sec): Atropine:(mg) Target HR: 144 Double Product: [id number] Resting HR: 83 Resting BP: 169 / 106 Peak HR: 150 Peak BP: 178 / 102 Max Predicted HR: 169 89 % Max Predicted HR Stress Summary: BP Response: Reason for Termination: Cardiac Symptoms: ECG Analysis Resting EKG: Stress EKG: Arrhythmia: Echo Analysis Base Echo Analysis: Low Echo Anaylsis: Peak Echo Analysis: Recovery Echo: MEASUREMENTS (Male/Female) Normal Values CONCLUSIONS Dobutamine stress echo Baseline heart rate 87 beats a minute, Baseline blood pressure 163 107 mmHg Baseline EKG shows normal ST segments Patient received dobutamine infusion at 30 mics. She achieved a peak 150 beats a minute No ECG evidence for ischemia no echocardiographic evidence for ischemia No arrhythmias Dr. Albin Lanier MD (Electronically Signed) Final Date: 02 March 2022 16:24
[2022-03-02 17:08] VITALS: BP 132/80; PULSE 80
--- NOTE | 2022-03-02 17:40 | CA ---
Transthoracic Echo Report Name: Leisa Grant Age: 52 Gender: F : 1970 Exam Date: 03/02/2022 11:45 Exam Location: [place] [facility] Ht (in): 69 Wt (lb): 235 Ordering Physician: Chloe Che Attending/Referring Phys: Assistant Banquet Manager Lety Araiza RDCS Procedure CPT: Indications: near syncope Cardiac Hx: Technical Quality: Fair Contrast 1: Total Dose (mL): Contrast 2: Total Dose (mL): MEASUREMENTS (Male / Female) Normal Values 2D ECHO LV Diastolic Diameter PLAX 5.0 cm 4.2 - 5.9 / 3.9 - 5.3 cm LV Systolic Diameter PLAX 3.2 cm IVS Diastolic Thickness 0.8 cm 0.6 - 1.0 / 0.6 - 0.9 cm LVPW Diastolic Thickness 1.1 cm 0.6 - 1.0 / 0.6 - 0.9 cm LV Relative Wall Thickness 0.4 RV Internal Dim ED PLAX 3.8 cm LA Volume 63.5 cm??? 18 - 58 / 22 - 52 cm??? M-MODE Aortic Root Diameter MM 3.0 cm LA Systolic Diameter MM 4.6 cm LA Ao Ratio MM 1.5 AV Cusp Separation MM 1.8 cm DOPPLER AV Peak Velocity 148.4 cm/s AV Peak Gradient 8.8 mmHg LVOT Peak Velocity 105.5 cm/s LVOT Peak Gradient 4.5 mmHg MV Area PHT 3.4 cm??? Mitral E Point Velocity 77.1 cm/s Mitral A Point Velocity 88.3 cm/s Mitral E to A Ratio 0.9 MV Deceleration Time 223.6 ms MV E' Velocity 5.9 cm/s Mitral E to MV E' Ratio 13.2 TR Peak Velocity 177.5 cm/s TR Peak Gradient 12.6 mmHg Right Ventricular Systolic Press 17.6 mmHg PV Peak Velocity 85.5 cm/s PV Peak Gradient 2.9 mmHg FINDINGS Left Ventricle Normal Left ventricular size, wall thickness, systolic function with no obvious regional wall motion abnormalities. Normal Left ventricular diastolic filling pattern. Left ventricular ejection fraction is estimated at 60-65 %. Right Ventricle Normal right ventricular size and function. Right Atrium Normal right atrial size. Left Atrium Moderately increased left atrial volume. Mitral Valve Structurally normal mitral valve. Mild mitral regurgitation. Aortic Valve Trileaflet aortic valve. No aortic valve stenosis or regurgitation. Tricuspid Valve Structurally normal tricuspid valve. Mild tricuspid regurgitation. Pulmonic Valve Structurally normal pulmonic valve. Trace pulmonic regurgitation. Pericardium No pericardial effusion. Aorta Normal size aortic root and proximal ascending aorta. CONCLUSIONS Preserved LV size and systolic function ejection fraction 60% Previewed by: Dr. Albin Lanier MD (Electronically Signed) Final Date: 02 March 2022 17:39
--- NOTE | 2022-03-04 15:22 | P.DS ---
Providers Date of admission: 03/01/22 02:17 Expected date of discharge: 03/02/22 Attending physician: Deedee Silva Consults: 03/01/22 02:17 Consult Physician Routine Consulting Provider: Benny Elliott Consult Reason/Comments: near syncope Do you want consulting provider notified?: Yes Primary care physician: Marcial Prescott [facility] Course: Final diagnosis Near syncope Hypertension Left lower extremity superficial thrombophlebitis of the left wrist History of anxiety GI prophylaxis DVT prophylaxis Discharge disposition Patient is being discharged in a stable condition with guarded prognosis to home. Patient will follow-up with Dr. Prescott in the outpatient setting upon discharge. Patient is to follow-up with cardiology as scheduled. Total time taken is greater than 35 minutes. Hospital course This is a 52-year-old female who was recently admitted with feelings of lightheadedness and a flushing sensation and feeling like passing out. Patient was seen and evaluated by cardiology underwent stress echo which was negative and echo showing an EF greater than 55%. Patient does have history of hypertension and takes losartan 100 mg daily recommend decreasing the dose in half and closely following up with cardiology as discussed. Patient encouraged to get up slowly at the side of the bed or chair prior to getting up and standing. Recommend outpatient follow-up with cardiology closely as well as primary care provider. Patient has been cleared by cardiology for discharge. Currently no reports of chest pain, shortness of breath, or palpitations. Patient is afebrile. No reports of nausea or vomiting and patient is tolerating diet. Patient will be discharged home today. Physical exam: Gen: This is a 52-year-old female is awake, alert and oriented 3, well- developed, well-nourished, obese HEENT: Head is atraumatic, normocephalic. Pupils equal, round. Sclerae is anicteric. NECK: Supple. No JVD. No lymphadenopathy. No thyromegaly. LUNGS: Clear to auscultation. No wheezes or rhonchi. No intercostal retractions. HEART: Regular rate and rhythm. No murmur. ABDOMEN: Soft. Bowel sounds are present. No masses. No tenderness. EXTREMITIES: No pedal edema. No calf tenderness. NEUROLOGICAL: Patient is awake, alert and oriented x3. Cranial nerves 2 through 12 are grossly intact. Please refer to medication reconciliation sheet for a list of medications. The impression and plan of care has been dictated by Shirley Saldivar, Nurse Practitioner as directed. Dr. Will MD I have performed a history and examination and MDM of this patient, discussed the same with the dictator, and agree with the dictator's assessment and plan as written ,documented as a scribe. Based on total visit time, I have performed more than 50% of the visit. Patient Condition at Discharge: Good Plan - Discharge Summary New Discharge Prescriptions: Continue Losartan Potassium 100 mg PO DIRECTED Discontinued amLODIPine [Norvasc] 5 mg PO DAILY Discharge Medication List Losartan Potassium 100 mg PO DIRECTED 03/01/22 [History] Follow up Appointment(s)/Referral(s): Hang Connors MD [STAFF PHYSICIAN] - 1 Week (Office is closed. Please call to schedulee follow up) Marcial Prescott DO [Primary Care Provider] - 1-2 days (Office is closed. Please call to schedule follow up) Activity/Diet/Wound Care/Special Instructions: decrease losartan to 50mg daily -check blood pressure daily-keep a log and show doctor Discharge Disposition: HOME SELF-CARE
== END 2022-03-02 17:44 | disposition home or self-care (01) ==
LOC: EC 23:52 → 3SCARD 03-01 02:17
PROVIDERS: ADMIT Hospitalist; ATTEND Hospitalist
DX: R55 Syncope and collapse (principal); R23.2 Flushing; F41.9 Anxiety disorder, unspecified; I80.8 Phlebitis and thrombophlebitis of other sites; I10 Essential (primary) hypertension; Z79.899 Other long term (current) drug therapy
CPT/HCPCS: 96361; 96374; 99285; 36415; 94760; 93005; 93306; 93351; 83880; 80053; 83735; 84100; 84484 ×2; 85025; 85610; 85730; G0378 ×2; J1250

== ENCOUNTER 2022-03-03 12:45 | Emergency (ER) | payer BC ==
[2022-03-03 12:54] VITALS: RESP 16; TEMP 97.9
[2022-03-03] MEDS ORDERED: SODIUM CHLORIDE 0.9% 1,000 ML IV STA (13:11)
--- NOTE | 2022-03-03 13:15 | ED ---
General Adult HPI - General Chief complaint: Syncope Stated complaint: near syncope Time Seen by Provider: 03/03/22 13:01 Source: patient, RN notes reviewed Mode of arrival: ambulatory Limitations: no limitations - History of Present Illness Initial comments: Patient is a pleasant 52-year-old female presenting to the emergency department with concerns for a near syncopal event. Incident occurred just prior to arrival. Patient was in the hospital recently for similar type thing. Patient went home and was doing well. Patient was sweeping the bathroom. Patient suddenly felt warm and sweaty. Patient had some paresthesias and was right headed and concerned she may pass out. Patient did have palpitations. Symptoms have now resolved and patient is essentially symptom-free. Patient has had over a dozen episodes over the past several months. - Related Data Home Medications Medication Instructions Recorded Confirmed Losartan Potassium 100 mg PO DIRECTED 03/01/22 03/01/22 Allergies Allergy/AdvReac Type Severity Reaction Status Date / Time No Known Allergies Allergy Verified 03/03/22 12:54 Review of Systems ROS Statement: Those systems with pertinent positive or pertinent negative responses have been documented in the HPI. ROS Other: All systems not noted in ROS Statement are negative. Constitutional: Denies: fever Eyes: Denies: eye pain ENT: Denies: ear pain Respiratory: Denies: cough Cardiovascular: Reports: as per HPI, palpitations. Denies: chest pain Endocrine: Denies: fatigue Gastrointestinal: Denies: abdominal pain Genitourinary: Denies: dysuria Musculoskeletal: Denies: back pain Skin: Reports: other (Patient felt flushed) Past Medical History Past Medical History: Hypertension History of Any Multi-Drug Resistant Organisms: None Reported Additional Past Surgical History / Comment(s): kidney stone removal. Past Anesthesia/Blood Transfusion Reactions: No Reported Reaction Past Psychological History: Anxiety Smoking Status: Never smoker Past Alcohol Use History: None Reported Past Drug Use History: None Reported General Exam Limitations: no limitations General appearance: alert Head exam: Present: atraumatic, normocephalic Eye exam: Present: normal appearance, PERRL, EOMI ENT exam: Present: normal oropharynx Neck exam: Present: normal inspection. Absent: tenderness, meningismus Respiratory exam: Present: normal lung sounds bilaterally Cardiovascular Exam: Present: regular rate, normal rhythm, normal heart sounds Expanded Peripheral pulses: 2+: Radial (R), Radial (L), Posterior Tibialis (R), Posterior Tibialis (L) GI/Abdominal exam: Present: soft. Absent: distended, tenderness, pulsatile mass Extremities exam: Present: normal inspection. Absent: pedal edema, calf tenderness Neurological exam: Present: alert Psychiatric exam: Present: normal affect, normal mood Skin exam: Present: normal color Course Vital Signs 03/03/22 03/03/22 03/03/22 12:52 13:07 13:18 Temperature 97.9 F Pulse Rate 94 84 68 Respiratory 16 16 16 Rate Blood Pressure 172/108 143/89 145/89 O2 Sat by Pulse 99 99 98 Oximetry 03/03/22 13:48 Temperature Pulse Rate 66 Respiratory 16 Rate Blood Pressure 148/88 O2 Sat by Pulse 98 Oximetry EKG Findings - EKG Results: EKG: interpreted by ROSAURAD (Left axis. LVH criteria.), sinus rhythm, normal ST/T Medical Decision Making - Medical Decision Making Was pt. sent in by a medical professional or institution (, PA, GENERAL FARMWORKER, urgent care, hospital, or snf...) When possible be specific @ -No Did you speak to anyone other than the patient for history (EMS, parent, family, police, friend...)? What history was obtained from this source @ -No Did you review nursing and triage notes (agree or disagree)? Why? @ -I reviewed and agree with nursing and triage notes Were old charts reviewed (outside hosp., previous admission, EMS record, old EKG, old radiological studies, urgent care reports/EKG's, snf records)? Report findings @ -No old charts were reviewed Differential Diagnosis (chest pain, altered mental status, abdominal pain women, abdominal pain men, vaginal bleeding, weakness, fever, dyspnea, syncope, headache, dizziness, GI bleed, back pain, seizure, CVA, palpatations, mental health)? @ -Differential Chest Pain: Stable Angina, Unstable Angina, STEMI, NSTEMI Aortic Dissection, Pneumothorax, Musculoskeletal, Esophageal Spasm GERD, Cholecystitis, Pancreatitis, Zoster, thi s is not meant to be an all-inclusive list. Differential Syncope: Valvular disease, hypertrophic cardiomyopathy, pulmonary embolism, tamponade, tachycardia, bradycardia, ID, hypovolemia, hemorrhage, dissection, anemia, intracranial hemorrhage, seizure, hypoglycemia, carbon monoxide poisoning, this is not meant to be an all-inclusive list. EKG interpreted by me (3pts min.). @ -As above X-rays interpreted by me (1pt min.). @ -Chest x-ray shows no acute process CT interpreted by me (1pt min.). @ -None done U/S interpreted by me (1pt. min.). @ -None done What testing was considered but not performed or refused? (CT, X-rays, U/S, labs)? Why? @ -None What meds were considered but not given or refused? Why? @ -None Did you discuss the management of the patient with other professionals (professionals i.e. DrMike, PA, GENERAL FARMWORKER, lab, RT, psych nurse, medical social consultant, strategic client executive, teacher, parole or probation officer, senior case manager)? Give summary @ -Case was discussed with Dr. Solis who is familiar with this patient. He does request setting patient up for holter monitor and this has been done. Was smoking cessation discussed for >3mins.? @ -No Was critical care preformed (if so, how long)? @ -No Were there social determinants of health that impacted care today? How? (Homelessness, low income, unemployed, alcoholism, drug addiction, transportation, low edu. Level, literacy, decrease access to med. care, custodial, rehab)? @ -No Was there de-escalation of care discussed even if they declined (Discuss DNR or withdrawal of care, Hospice)? DNR status @ -No What co-morbidities impacted this encounter? (DM, HTN, Smoking, COPD, CAD, Cancer, CVA, ARF, Chemo, Hep., AIDS, mental health diagnosis, sleep apnea, morbid obesity)? @ -None Was patient admitted / discharged? Hospital course, mention meds given and rout e, prescriptions, significant lab abnormalities, going to OR and other pertinent info. @ -Patient will be discharged. Patient reevaluated and resting comfortably in bed. Patient is updated on results and plan. Patient will be sent over for set up for monitor Undiagnosed new problem with uncertain prognosis? @ -No Drug Therapy requiring intensive monitoring for toxicity (Heparin, Nitro, Insulin, Cardizem)? @ -No Were any procedures done? @ -No Diagnosis/symptom? @ near syncope Acute, or Chronic, or Acute on Chronic? @ -Acute on chronic Uncomplicated (without systemic symptoms) or Complicated (systemic symptoms)? @ -Uncomplicated Side effects of treatment? @ -No Exacerbation, Progression, or Severe Exacerbation? @ -No Poses a threat to life or bodily function? How? (Chest pain, USA, ID, pneumonia, PE, COPD, DKA, ARF, appy, cholecystitis, CVA, Diverticulitis, Homicidal, Suicidal, threat to staff... and all critical care pts) @ -No - Lab Data Result diagrams: 03/03/22 13:17 03/03/22 13:17 Lab Results 03/03/22 03/03/22 03/03/22 Range/Units 13:17 13:17 13:17 WBC 6.9 (3.8-10.6) k/uL RBC 4.73 (3.80-5.40) m/uL Hgb 14.1 (11.4-16.0) gm/dL Hct 42.2 (34.0-46.0) % MCV 89.1 (80.0-100.0) fL MCH 29.7 (25.0-35.0) pg MCHC 33.4 (31.0-37.0) g/dL RDW 12.8 (11.5-15.5) % Plt Count 234 (150-450) k/uL MPV 8.9 Neutrophils % 67 % Lymphocytes % 25 % Monocytes % 5 % Eosinophils % 2 % Basophils % 0 % Neutrophils # 4.6 (1.3-7.7) k/uL Lymphocytes # 1.7 (1.0-4.8) k/uL Monocytes # 0.4 (0-1.0) k/uL Eosinophils # 0.1 (0-0.7) k/uL Basophils # 0.0 (0-0.2) k/uL PT 10.6 (9.0-12.0) sec INR 1.0 (<1.2) APTT 22.0 (22.0-30.0) sec Sodium 138 (137-145) mmol/L Potassium 4.4 (3.5-5.1) mmol/L Chloride 104 (98-107) mmol/L Carbon Dioxide 26 (22-30) mmol/L Anion Gap 8 mmol/L BUN 20 H (7-17) mg/dL Creatinine 0.67 (0.52-1.04) mg/dL Est GFR (CKD-EPI)AfAm >90 (>60 ml/min/1.73 sqM) Est GFR (CKD-EPI)NonAf >90 (>60 ml/min/1.73 sqM) Glucose 114 H (74-99) mg/dL Calcium 9.3 (8.4-10.2) mg/dL Magnesium 1.9 (1.6-2.3) mg/dL Total Bilirubin 0.4 (0.2-1.3) mg/dL AST 21 (14-36) U/L ALT 19 (4-34) U/L Alkaline Phosphatase 82 (38-126) U/L Troponin I (0.000-0.034) ng/mL Total Protein 7.0 (6.3-8.2) g/dL Albumin 4.3 (3.5-5.0) g/dL TSH 2.250 (0.465-4.680) mIU/L Free T4 1.04 (0.78-2.19) ng/dL Free T3 pg/mL 3.6 (2.8-5.3) pg/ml 03/03/22 Range/Units 13:17 WBC (3.8-10.6) k/uL RBC (3.80-5.40) m/uL Hgb (11.4-16.0) gm/dL Hct (34.0-46.0) % MCV (80.0-100.0) fL MCH (25.0-35.0) pg MCHC (31.0-37.0) g/dL RDW (11.5-15.5) % Plt Count (150-450) k/uL MPV Neutrophils % % Lymphocytes % % Monocytes % % Eosinophils % % Basophils % % Neutrophils # (1.3-7.7) k/uL Lymphocytes # (1.0-4.8) k/uL Monocytes # (0-1.0) k/uL Eosinophils # (0-0.7) k/uL Basophils # (0-0.2) k/uL PT (9.0-12.0) sec INR (<1.2) APTT (22.0-30.0) sec Sodium (137-145) mmol/L Potassium (3.5-5.1) mmol/L Chloride (98-107) mmol/L Carbon Dioxide (22-30) mmol/L Anion Gap mmol/L BUN (7-17) mg/dL Creatinine (0.52-1.04) mg/dL Est GFR (CKD-EPI)AfAm (>60 ml/min/1.73 sqM) Est GFR (CKD-EPI)NonAf (>60 ml/min/1.73 sqM) Glucose (74-99) mg/dL Calcium (8.4-10.2) mg/dL Magnesium (1.6-2.3) mg/dL Total Bilirubin (0.2-1.3) mg/dL AST (14-36) U/L ALT (4-34) U/L Alkaline Phosphatase (38-126) U/L Troponin I <0.012 (0.000-0.034) ng/mL Total Protein (6.3-8.2) g/dL Albumin (3.5-5.0) g/dL TSH (0.465-4.680) mIU/L Free T4 (0.78-2.19) ng/dL Free T3 pg/mL (2.8-5.3) pg/ml - Radiology Data Interpreted by me: Chest x-ray reveals no acute process Disposition Clinical Impression: Near syncope Disposition: HOME SELF-CARE Condition: Stable Instructions (If sedation given, give patient instructions): Near Syncope (ED) Additional Instructions: Please do follow-up with primary care physician in the next day or 2 for rechec k. Please also follow-up with cardiology as planned. Please head over to cardiology at this time for her set up with Holter monitor. Return for passing out, chest pain or shortness of breath, increased heart rate, worsening or changing symptoms or other concerns. Is patient prescribed a controlled substance at d/c from ED?: No Referrals: Marcial Prescott DO [Primary Care Provider] - 1-2 days Andrew Gaston MD [STAFF PHYSICIAN] - 03/13/22 1:00 pm (This is also the address that you will pick remover your halter monitor immediately after leaving the emergency center. ) Time of Disposition: 15:48
[2022-03-03 13:23] LABS: Basophils % (A) 0 %; Eosinophils # (A) 0.1 k/uL (0-0.7); Eosinophils % (A) 2 %; HCT 42.2 % (34.0-46.0); HGB 14.1 gm/dL (11.4-16.0); Lymphocytes # (A) 1.7 k/uL (1.0-4.8); Lymphocytes % (A) 25 %; MCH 29.7 pg (25.0-35.0); MCHC 33.4 g/dL (31.0-37.0); MCV 89.1 fL (80.0-100.0); Mean Platelet Volume 8.9; Monocytes # (A) 0.4 k/uL (0-1.0); Monocytes % (A) 5 %; Neutrophils # (A) 4.6 k/uL (1.3-7.7); Neutrophils % (A) 67 %; Platelet Count 234 k/uL (150-450); RBC 4.73 m/uL (3.80-5.40); RDW 12.8 % (11.5-15.5); WBC 6.9 k/uL (3.8-10.6)
[2022-03-03 13:32] LABS: ALT 19 U/L (4-34); AST 21 U/L (14-36); African American GFR (CKD) >90 (>60 ml/min/1.73 sqM); Albumin 4.3 g/dL (3.5-5.0); Alkaline Phosphatase 82 U/L (38-126); Anion Gap 8 mmol/L; Blood Urea Nitrogen 20 mg/dL (7-17); Calcium 9.3 mg/dL (8.4-10.2); Carbon Dioxide 26 mmol/L (22-30); Chloride 104 mmol/L (98-107); Glucose 114 mg/dL (74-99); Magnesium 1.9 mg/dL (1.6-2.3); Non-African American GFR(CKD) >90 (>60 ml/min/1.73 sqM); Potassium 4.4 mmol/L (3.5-5.1); Sodium 138 mmol/L (137-145); Total Bilirubin 0.4 mg/dL (0.2-1.3)
[2022-03-03 13:45] LABS: Prothrombin Time 10.6 sec (9.0-12.0)
[2022-03-03 13:49] LABS: T4, Free (Free Thyroxine) 1.04 ng/dL (0.78-2.19)
[2022-03-03] MEDS ORDERED: LORazepam 2 MG/ML INJ IV STA (14:15)
--- NOTE | 2022-03-03 14:31 | XR ---
EXAMINATION TYPE: XR chest 2V DATE OF EXAM: 03/03/2022 COMPARISON: 02/07/2022 TECHNIQUE: PA and lateral views submitted. HISTORY: Syncope FINDINGS: The lungs are clear and there is no pneumothorax, pleural effusion, or focal pneumonia. Heart size normal and no overt failure. Osseous structures demonstrate hypertrophic and degenerative changes of the spine. IMPRESSION: 1. No acute process.
[2022-03-03 16:09] VITALS: PULSE 68
[2022-03-03 16:24] VITALS: BP 148/94
== END 2022-03-03 16:10 | disposition home or self-care (01) ==
LOC: EC 12:45
DX: R55 Syncope and collapse (principal); I10 Essential (primary) hypertension; F41.9 Anxiety disorder, unspecified; Z79.899 Other long term (current) drug therapy
CPT/HCPCS: 36415; 93005; 84439; 84481; 80053; 83735; 84443; 84484; 85025; 85610; 85730; 71046; 99284; 96374; 96361 ×2; J2060

== ENCOUNTER 2022-06-20 17:58 | Emergency (ER) | payer BC ==
[2022-06-20 18:06] VITALS: RESP 18; TEMP 98
[2022-06-20 19:02] LABS: Basophils % (A) 0 %; Eosinophils # (A) 0.1 k/uL (0-0.7); Eosinophils % (A) 2 %; HGB 14.3 gm/dL (11.4-16.0); Lymphocytes # (A) 2.1 k/uL (1.0-4.8); Lymphocytes % (A) 24 %; MCH 29.6 pg (25.0-35.0); MCV 87.1 fL (80.0-100.0); Mean Platelet Volume 9.5; Monocytes # (A) 0.5 k/uL (0-1.0); Monocytes % (A) 6 %; Neutrophils # (A) 5.7 k/uL (1.3-7.7); Neutrophils % (A) 67 %; Platelet Count 222 k/uL (150-450); RBC 4.83 m/uL (3.80-5.40); RDW 13.1 % (11.5-15.5); WBC 8.5 k/uL (3.8-10.6)
[2022-06-20 19:17] LABS: ALT 15 U/L (4-34); AST 19 U/L (14-36); African American GFR (CKD) >90 (>60 ml/min/1.73 sqM); Albumin 4.3 g/dL (3.5-5.0); Alkaline Phosphatase 83 U/L (38-126); Anion Gap 9 mmol/L; Blood Urea Nitrogen 12 mg/dL (7-17); Calcium 9.9 mg/dL (8.4-10.2); Carbon Dioxide 26 mmol/L (22-30); Chloride 102 mmol/L (98-107); Glucose 111 mg/dL (74-99); Non-African American GFR(CKD) >90 (>60 ml/min/1.73 sqM); Potassium 4.1 mmol/L (3.5-5.1); Sodium 137 mmol/L (137-145); Total Bilirubin 0.7 mg/dL (0.2-1.3)
[2022-06-20 19:24] LABS: Partial Thromboplastin Time 22.1 sec (22.0-30.0); Prothrombin Time 10.7 sec (9.0-12.0)
--- NOTE | 2022-06-20 19:40 | XR ---
EXAMINATION TYPE: XR chest 2V DATE OF EXAM: 06/20/2022 7:33 PM COMPARISON: Chest radiographs from 03/03/2022 TECHNIQUE: XR chest 2V Frontal and lateral views of the chest. CLINICAL INDICATION:Female, 52 years old with history of Weakness; FINDINGS: Lungs/Pleura: There is no evidence of pleural effusion, focal consolidation, or pneumothorax. Pulmonary vascularity: Unremarkable. Heart/mediastinum: Cardiomediastinal silhouette is unremarkable. Musculoskeletal: No acute osseous pathology. Mild degenerative changes of thoracic spine. IMPRESSION: No acute cardiopulmonary disease/process.
--- NOTE | 2022-06-20 19:41 | CT ---
EXAMINATION TYPE: CT brain wo con CT DLP: 1166.4 mGycm, Automated exposure control for dose reduction was used. DATE OF EXAM: 06/20/2022 7:33 PM COMPARISON: None. CLINICAL INDICATION:Female, 52 years old with history of Paresthesia, TECHNIQUE: Brain: Multiple axial CT images of the brain were obtained without IV contrast. Coronal sagittal refo rmats reviewed. FINDINGS: Brain: Extra-axial spaces: No abnormal extra-axial fluid collections. Ventricular system: Within normal limits Cerebral parenchyma: No acute intraparenchymal hemorrhage or mass effect. The lima-white junction is well differentiated. Cerebellum: Unremarkable. Mass effect: No evidence of midline shift. Intracranial vasculature: unremarkable Soft tissues: Normal. Calvarium/osseous structures: No depressed skull fracture. Paranasal sinuses and mastoid air cells: Clear Visualized orbits: Orbital contents are intact. IMPRESSION: No acute intracranial process.
[2022-06-20 19:53] VITALS: BP 154/92; PULSE 86
--- NOTE | 2022-06-20 20:12 | ED ---
General Adult HPI - General Chief complaint: Neuro Symptoms/Deficit Stated complaint: dizzy Time Seen by Provider: 06/20/22 18:26 Source: patient, RN notes reviewed, old records reviewed Mode of arrival: ambulatory - History of Present Illness Initial comments: 52-year-old female presenting for reevaluation of facial flushing, but hasn't pins and needle sensation throughout her posterior scalp. Patient has had symptoms for the past several days. Denies central chest pain. Denies fever. Patient states her last menstrual cycle was approximately 3 weeks ago. Patient has not had abdominal pain or vomiting. No diarrhea. - Related Data Home Medications Medication Instructions Recorded Confirmed Losartan Potassium 100 mg PO DIRECTED 03/01/22 03/01/22 Previous Rx's Medication Instructions Recorded hydrOXYzine HCL [Atarax] 25 mg PO TID PRN #20 tab 06/16/22 Allergies Allergy/AdvReac Type Severity Reaction Status Date / Time No Known Allergies Allergy Verified 06/20/22 18:06 Review of Systems ROS Statement: Those systems with pertinent positive or pertinent negative responses have been documented in the HPI. ROS Other: All systems not noted in ROS Statement are negative. Past Medical History Past Medical History: Hypertension History of Any Multi-Drug Resistant Organisms: None Reported Additional Past Surgical History / Comment(s): kidney stone removal. Past Anesthesia/Blood Transfusion Reactions: No Reported Reaction Past Psychological History: Anxiety Smoking Status: Never smoker Past Alcohol Use History: None Reported Past Drug Use History: None Reported General Exam General appearance: alert, in no apparent distress Head exam: Present: atraumatic, normocephalic Eye exam: Present: normal appearance, PERRL ENT exam: Present: normal exam Neck exam: Present: normal inspection. Absent: tenderness, meningismus Respiratory exam: Present: normal lung sounds bilaterally. Absent: respiratory distress Cardiovascular Exam: Present: regular rate, normal rhythm GI/Abdominal exam: Present: soft. Absent: distended, tenderness Back exam: Present: normal inspection Neurological exam: Present: alert, CN II-XII intact, motor sensory deficit. Absent: reflexes normal Psychiatric exam: Present: normal affect, normal mood Skin exam: Present: erythema (Flushed face and upper chest) Course Vital Signs 06/20/22 06/20/22 18:00 19:52 Temperature 98 F Pulse Rate 88 86 Respiratory 18 18 Rate Blood Pressure 154/96 154/92 O2 Sat by Pulse 99 98 Oximetry EKG Findings - EKG Comments: EKG Findings:: Sinus rhythm rate of 79, IA interval 132, QRS duration 81, QTC 398, no ST segment elevation. - EKG Results: EKG: interpreted by SHANTEL Medical Decision Making - Medical Decision Making 52-year-old female presenting for paresthesia, pins and needle sensation of the scalp, face and upper chest. Was pt. sent in by a medical professional or institution (ARMIN Flores, FLATWORK CATCHER, urgent care, hospital, or senior living...) When possible be specific @ -No Did you speak to anyone other than the patient for history (EMS, parent, family, police, friend...)? What history was obtained from this source @ -No Did you review nursing and triage notes (agree or disagree)? Why? @ -I reviewed and agree with nursing and triage notes Were old charts reviewed (outside hosp., previous admission, EMS record, old EKG, old radiological studies, urgent care reports/EKG's, senior living records)? Report findings @ -No old charts were reviewed Differential Diagnosis (chest pain, altered mental status, abdominal pain women, abdominal pain men, vaginal bleeding, weakness, fever, dyspnea, syncope, headache, dizziness, GI bleed, back pain, seizure, CVA, palpatations, mental health, musculoskeletal)? @Facial flushing, menopause, hormonal abnormality, paresthesia EKG interpreted by me (3pts min.). @ -As above X-rays interpreted by me (1pt min.). @ -None done CT interpreted by me (1pt min.). @Negative for acute intracranial hemorrhage or mass effect U/S interpreted by me (1pt. min.). @ -None done What testing was considered but not performed or refused? (CT, X-rays, U/S, labs)? Why? @ -None What meds were considered but not given or refused? Why? @ -None Did you discuss the management of the patient with other professionals (professionals i.e. ARMIN Flores, FLATWORK CATCHER, lab, RT, psych nurse, social work instructor, surgeon/president, teacher, civil preparedness officer, family independence case manager)? Give summary @ -No Was smoking cessation discussed for >3mins.? @ -No Was critical care preformed (if so, how long)? @ -No Were there social determinants of health that impacted care today? How? (Homelessness, low income, unemployed, alcoholism, drug addiction, transportation, low edu. Level, literacy, decrease access to med. care, alf, rehab)? @ -No Was there de-escalation of care discussed even if they declined (Discuss DNR or withdrawal of care, Hospice)? DNR status @ -No What co-morbidities impacted this encounter? (DM, HTN, Smoking, COPD, CAD, Cancer, CVA, ARF, Chemo, Hep., AIDS, mental health diagnosis, sleep apnea, morbid obesity)? @Hypertension Was patient admitted / discharged? Hospital course, mention meds given and route, prescriptions, significant lab abnormalities, going to OR and other pertinent info. @ -52-year-old male with reevaluation for facial flushing and paresthesia. Patient has no focal findings on exam, no sensory loss, no weakness, no speech abnormality, no facial droop. I did perform repeat lab testing which is unremarkable, and CT negative. Patient stable for continued outpatient follow- up with her primary care physician and referral to neurology for this paresthesia Undiagnosed new problem with uncertain prognosis? @ -No Drug Therapy requiring intensive monitoring for toxicity (Heparin, Nitro, Insulin, Cardizem)? @ -No Were any procedures done? @ -No Diagnosis/symptom? @ -Paresthesia, facial flushing Acute, or Chronic, or Acute on Chronic? @Acute Uncomplicated (without systemic symptoms) or Complicated (systemic symptoms)? @ -default Side effects of treatment? @ -No Exacerbation, Progression, or Severe Exacerbation? @ -No Poses a threat to life or bodily function? How? (Chest pain, [place], [place], pneumonia, PE, COPD, DKA, ARF, appy, cholecystitis, CVA, Diverticulitis, Homicidal, Suicidal, threat to staff... and all critical care pts) @ -No - Lab Data Result diagrams: 06/20/22 18:46 06/20/22 18:46 Lab Results 06/20/22 06/20/22 06/20/22 Range/Units 18:46 18:46 18:46 WBC 8.5 (3.8-10.6) k/uL RBC 4.83 (3.80-5.40) m/uL Hgb 14.3 (11.4-16.0) gm/dL Hct 42.0 (34.0-46.0) % MCV 87.1 (80.0-100.0) fL MCH 29.6 (25.0-35.0) pg MCHC 34.0 (31.0-37.0) g/dL RDW 13.1 (11.5-15.5) % Plt Count 222 (150-450) k/uL MPV 9.5 Neutrophils % 67 % Lymphocytes % 24 % Monocytes % 6 % Eosinophils % 2 % Basophils % 0 % Neutrophils # 5.7 (1.3-7.7) k/uL Lymphocytes # 2.1 (1.0-4.8) k/uL Monocytes # 0.5 (0-1.0) k/uL Eosinophils # 0.1 (0-0.7) k/uL Basophils # 0.0 (0-0.2) k/uL PT 10.7 (9.0-12.0) sec INR 1.0 (<1.2) APTT 22.1 (22.0-30.0) sec Sodium 137 (137-145) mmol/L Potassium 4.1 (3.5-5.1) mmol/L Chloride 102 (98-107) mmol/L Carbon Dioxide 26 (22-30) mmol/L Anion Gap 9 mmol/L BUN 12 (7-17) mg/dL Creatinine 0.63 (0.52-1.04) mg/dL Est GFR (CKD-EPI)AfAm >90 (>60 ml/min/1.73 sqM) Est GFR (CKD-EPI)NonAf >90 (>60 ml/min/1.73 sqM) Glucose 111 H (74-99) mg/dL Calcium 9.9 (8.4-10.2) mg/dL Magnesium 2.0 (1.6-2.3) mg/dL Total Bilirubin 0.7 (0.2-1.3) mg/dL AST 19 (14-36) U/L ALT 15 (4-34) U/L Alkaline Phosphatase 83 (38-126) U/L Troponin I (0.000-0.034) ng/mL Total Protein 7.0 (6.3-8.2) g/dL Albumin 4.3 (3.5-5.0) g/dL TSH 2.860 (0.465-4.680) mIU/L 06/20/22 Range/Units 18:46 WBC (3.8-10.6) k/uL RBC (3.80-5.40) m/uL Hgb (11.4-16.0) gm/dL Hct (34.0-46.0) % MCV (80.0-100.0) fL MCH (25.0-35.0) pg MCHC (31.0-37.0) g/dL RDW (11.5-15.5) % Plt Count (150-450) k/uL MPV Neutrophils % % Lymphocytes % % Monocytes % % Eosinophils % % Basophils % % Neutrophils # (1.3-7.7) k/uL Lymphocytes # (1.0-4.8) k/uL Monocytes # (0-1.0) k/uL Eosinophils # (0-0.7) k/uL Basophils # (0-0.2) k/uL PT (9.0-12.0) sec INR (<1.2) APTT (22.0-30.0) sec Sodium (137-145) mmol/L Potassium (3.5-5.1) mmol/L Chloride (98-107) mmol/L Carbon Dioxide (22-30) mmol/L Anion Gap mmol/L BUN (7-17) mg/dL Creatinine (0.52-1.04) mg/dL Est GFR (CKD-EPI)AfAm (>60 ml/min/1.73 sqM) Est GFR (CKD-EPI)NonAf (>60 ml/min/1.73 sqM) Glucose (74-99) mg/dL Calcium (8.4-10.2) mg/dL Magnesium (1.6-2.3) mg/dL Total Bilirubin (0.2-1.3) mg/dL AST (14-36) U/L ALT (4-34) U/L Alkaline Phosphatase (38-126) U/L Troponin I <0.012 (0.000-0.034) ng/mL Total Protein (6.3-8.2) g/dL Albumin (3.5-5.0) g/dL TSH (0.465-4.680) mIU/L Disposition Clinical Impression: Facial flushing, Paresthesia Disposition: HOME SELF-CARE Condition: Good Instructions (If sedation given, give patient instructions): Paresthesia (ED) Is patient prescribed a controlled substance at d/c from ED?: No Referrals: Marcial Prescott DO [Primary Care Provider] - 1-2 days Panchito Ozuna MD [STAFF PHYSICIAN] - 1-2 days Time of Disposition: 20:12
== END 2022-06-20 20:24 | disposition home or self-care (01) ==
LOC: EC 17:58
DX: R20.2 Paresthesia of skin (principal); R23.2 Flushing; I10 Essential (primary) hypertension; F41.9 Anxiety disorder, unspecified; Z79.899 Other long term (current) drug therapy
CPT/HCPCS: 36415; 70450; 71046; 80053; 83735; 84443; 84484; 85025; 85610; 85730; 93005; 99284

== ENCOUNTER → 2022-07-18 | Outpatient (CLI) | payer BC ==
--- NOTE | 2022-07-18 07:54 | CT ---
EXAMINATION TYPE: CT abdomen pelvis wo con DATE OF EXAM: 07/18/2022 COMPARISON: HISTORY: Left sided flank pain CT DLP: 1101.4 mGycm Examination of the solid and hollow viscera is limited given the lack of contrast. FINDINGS: LUNG BASES: No evidence for nodule. No evidence for infiltrate. LIVER/GB: The gallbladder is unremarkable. No space-occupying hepatic lesion. PANCREAS: No pancreatic mass identified. No inflammatory process seen. SPLEEN: No evidence for splenomegaly. No intrasplenic lesions seen. ADRENALS: No adrenal nodules identified. No evidence for thickening. KIDNEYS: No evidence for renal mass. 4 mm nonobstructing calculus lower pole left kidney. This millim eters nonobstructing calculus lower pole right kidney. No hydronephrosis. BOWEL: Appendix has a normal appearance. No evidence of bowel obstruction. No inflammatory process. Lymph nodes: No evidence for adenopathy greater than 1 cm. Abdominal aorta: Atheromatous changes seen. No evidence for aneurysm. Genital organs: No significant abnormality. Other: No significant abnormality. IMPRESSION: 1. Nonobstructing nephrolithiasis. 2. Mild degenerative change lumbar spine.
== END | disposition home or self-care (01) ==
LOC: RADCTMAIN 07:03
PROVIDERS: ATTEND Family Medicine
DX: N20.0 Calculus of kidney (principal); M47.816 Spondylosis without myelopathy or radiculopathy, lumbar region
CPT/HCPCS: 74176

== ENCOUNTER → 2022-07-27 | Outpatient (CLI) | payer BC ==
--- NOTE | 2022-07-27 07:40 | XR ---
EXAMINATION TYPE: XR cervical spine limited DATE OF EXAM: 07/27/2022 COMPARISON: NONE HISTORY: Pain TECHNIQUE: Three views are submitted. FINDINGS: The odontoid is intact. There are no compression deformities. The prevertebral soft tissue structur es are within normal limits. There is multilevel degenerative disc disease with moderate to severe c hanges C4-C5 and C5-C6. Posterior spondylosis at both levels with a retrolisthesis of C4 relative to C5 of approximately 2.6 mm. Lung apices clear. IMPRESSION: 1. There is multilevel degenerative disc disease with moderate to severe changes C4-C5 and C5-C6. Pos terior spondylosis at both levels with a retrolisthesis of C4 relative to C5 of approximately 2.6 mm. Recommend MRI.
== END | disposition home or self-care (01) ==
LOC: RADXRMAIN 06:41
PROVIDERS: ATTEND Family Medicine
DX: M50.321 Other cervical disc degeneration at C4-C5 level (principal); M47.812 Spondylosis without myelopathy or radiculopathy, cervical region; M43.12 Spondylolisthesis, cervical region; M54.81 Occipital neuralgia
CPT/HCPCS: 72040

== ENCOUNTER → 2022-08-11 | Outpatient (CLI) | payer BC ==
--- NOTE | 2022-08-11 22:00 | MR ---
MRI CERVICAL SPINE: CLINICAL HISTORY: Neck pain, burning, and numbness since April. M50.30 per order. Degeneration of int ervertebral disc. TECHNIQUE: Multiplanar, multisequence imaging of the cervical spine is performed without IV contrast. COMPARISON: Cervical spine x-ray July 27, 2022 FINDINGS: Sagittal images of the cervical spine show the craniocervical junction to appear within nor mal limits. The cervical and upper thoracic spinal cord is normal in course, caliber, and signal. Th ere is grade 1 retrolisthesis of C5 on C6 redemonstrated. Mild disc space narrowing and spurring at t his level otherwise the vertebral body and intravertebral disk heights are normal. Large hemangioma i nvolving the posterior T2 vertebra and smaller hemangioma involving the right posterior superior C3 v ertebra are noted. Axial images show C2-C3 and C3-C4 levels to appear within normal limits. Axial images at C4-C5 level show uncovertebral facet degenerative changes causing mild bilateral neur al foraminal narrowing. Axial images at C5-C6 level show spondylolisthesis with broad-based posterior disc protrusion and unc overtebral facet degenerative change causing moderate left and mild right-sided neural foraminal narr owing. Axial images at C6-C7 and C7-T1 levels appear within normal limits. IMPRESSION: Spondylolisthesis and multilevel degenerative change in the mid cervical spine as detaile d above.
== END | disposition home or self-care (01) ==
LOC: RADMRIMAIN 07:18
PROVIDERS: ATTEND Family Medicine
DX: M50.322 Other cervical disc degeneration at C5-C6 level (principal); M43.12 Spondylolisthesis, cervical region; M47.812 Spondylosis without myelopathy or radiculopathy, cervical region
CPT/HCPCS: 72141

== ENCOUNTER → 2022-09-15 | Outpatient (CLI) | payer BC ==
--- NOTE | 2022-09-16 08:11 | MM ---
Reason for Exam: Screening (asymptomatic). Last mammogram was performed 9 year(s) and 7 month(s) ago. Patient History: Menarche at age 13. First Full-Term at age 23. Last menstrual period: 09/06/2022 Risk Values: Nessa 5 year model risk: 0.9%. NCI Lifetime model risk: 7.9%. Prior Study Comparison: 03/07/2012 Bilateral Diagnostic Mammogram, [facility]. 03/08/2013 Bilateral Screening Mammogram, [facility]. Tissue Density: There are scattered fibroglandular densities. Findings: Analyzed By CAD. There is no suspicious group of microcalcifications or suspicious mass in either breast. Benign calcifications within left breast. Overall Assessment: Benign, BI-RAD 2 Management: Screening Mammogram of both breasts in 1 year. A clinical breast exam by your physician is recommended on an annual basis and results should be correlated with mammographic findings. Note on Nessa scores and lifetime risk: 1. A Nessa score greater than 3% is considered moderate risk. If this is the case, consider specialist referral to assess eligibility for a risk reducing agent. If overall lifetime risk for the development of breast cancer is 20% or higher, the patient may qualify for future screening with alternating mammogram and breast MRI. Electronically signed and approved by: Maximiliano Tejada D.O.
== END | disposition home or self-care (01) ==
LOC: RADMAMWWP 16:08
PROVIDERS: ATTEND Family Medicine
DX: Z12.31 Encounter for screening mammogram for malignant neoplasm of breast (principal)
CPT/HCPCS: 77063; 77067

== ENCOUNTER 2022-09-30 10:17 | Day surgery (SDC) | payer BC ==
[2022-08-07 15:53] VITALS: BMI 34.7
[~2022-09-30 10:17] MED LIST: LACTATED RINGERS 1,000 ML IV SCH; LIDOCAINE 1% (10MG/ML) FOR IV START INTRADERMA PRN
[2022-09-30 10:51] VITALS: TEMP 97.5
[2022-09-30] MEDS ORDERED: PROPOFOL 10 MG/ML 20 ML VIAL IV ONE (11:26)
--- NOTE | 2022-09-30 11:41 | P.PCN ---
Date of Procedure: 09/30/22 Procedure(s) Performed: BRIEF HISTORY: Patient is a 52-year-old pleasant white female scheduled for an elective colonoscopy as a part of screening for colon cancer. PROCEDURE PERFORMED: Colonoscopy with snare polypectomy. PREOPERATIVE DIAGNOSIS: Screening for colon cancer. IV sedation per Anesthesia. PROCEDURE: After informed consent was obtained, the patient, was brought into the endoscopy unit. IV sedation was administered by Anesthesia under continuous monitoring. Digital rectal examination was normal. Initially the Olympus CF-160 flexible video colonoscope was then inserted in the rectum, gradually advanced into the cecum without any difficulty. Careful examination was performed as the scope was gradually being withdrawn. Ileocecal valve and the appendiceal orifice were visualized and appeared normal. Prep was excellent. Mucosa of the cecum, ascending colon, appeared normal. In the transverse colon there was a 6 mm sessile polyp removed by snare polypectomy. Rest of the transverse colon, descending colon, sigmoid colon, and rectum appeared normal. Retroflexion was performed in the rectum and no lesions were seen. The patient tolerated the procedure well. IMPRESSION: 6 mm transverse colon polyp status post cold snare polypectomy Rest of the colon appeared normal RECOMMENDATIONS: Findings of this examination were discussed with the patient as well as a family. She was advised to follow with the biopsy results. If the biopsy result adenoma she can have a repeat colonoscopy in 5 years.
[2022-09-30 12:08] VITALS: BP 117/75; PULSE 65; RESP 14
== END 2022-09-30 12:14 ==
LOC: ORWHC2ENDO 10:17
PROVIDERS: ATTEND Internal Medicine Gastroenterology
DX: Z12.11 Encounter for screening for malignant neoplasm of colon (principal); D12.3 Benign neoplasm of transverse colon; I10 Essential (primary) hypertension; Z79.1 Long term (current) use of non-steroidal anti-inflammatories (NSAID); Z79.811 Long term (current) use of aromatase inhibitors; Z79.899 Other long term (current) drug therapy
CPT/HCPCS: 81025; 88305; 45385; J2704

== ENCOUNTER 2023-03-05 16:54 | Emergency (ER) | payer BC ==
[2023-03-05] MEDS ORDERED: ONDANSETRON ODT 4 MG TAB PO STA (17:34)
--- NOTE | 2023-03-05 17:35 | ED ---
Back Pain HPI - General Source: patient, RN notes reviewed <Mali Delaney - Last Filed: 03/05/23 17:34> - General Source: RN notes reviewed, old records reviewed Mode of arrival: ambulatory Limitations: no limitations - History of Present Illness MD Complaint: back pain, back injury, other (Left flank pain severe) -: hour(s) Similar Symptoms Previously: Yes Place: home Radiation: buttocks Severity: severe Severity scale (1-10): 8 Quality: sharp Consistency: constant Improves With: none Worsens With: none Context: other (History of kidney stones) Associated Symptoms: abdominal pain, nausea/vomiting <Alberto Frost - Last Filed: 03/16/23 17:57> - General Stated Complaint: L side back pain Time Seen by Provider: 03/05/23 17:34 - History of Present Illness Initial Comments: Patient is a 53-year-old female presented ER with chief complaint of left flank pain. Patient states it started earlier this afternoon. Patient does have a history of kidney stones. Patient also is endorsing nausea and chills. (Mali Orozco) This is a 53-year-old female to the ER for evaluation of left flank pain severe and significant onset of left flank pain sudden with history of kidney stones. Positive nausea and vomiting (Alberto Frost) - Related Data Home Medications Medication Instructions Recorded Confirmed Losartan Potassium 100 mg PO DIRECTED 03/01/22 09/28/22 Naproxen [Naprosyn] 500 mg PO DAILY 09/28/22 09/28/22 Previous Rx's Medication Instructions Recorded Butalb/APAP/Caff 50-325-40Mg 1 tab PO Q4H PRN #10 tablet 09/06/22 [Fioricet 50-325-40] Allergies Allergy/AdvReac Type Severity Reaction Status Date / Time No Known Allergies Allergy Verified 03/05/23 17:47 Review of Systems ROS Other: All systems not noted in ROS Statement are negative. <Mali Delaney - Last Filed: 03/05/23 17:34> ROS Other: All systems not noted in ROS Statement are negative. <Alberto Frost - Last Filed: 03/16/23 17:57> ROS Statement: Those systems with pertinent positive or pertinent negative responses have been documented in the HPI. Past Medical History Past Medical History: Hypertension, Osteoarthritis (OA) Additional Past Medical History / Comment(s): KIDNEY STONES. HEADACHES DUE TO INFLAMED NERVE IN NECK History of Any Multi-Drug Resistant Organisms: None Reported Additional Past Surgical History / Comment(s): kidney stone removal Past Anesthesia/Blood Transfusion Reactions: No Reported Reaction Past Psychological History: Anxiety Additional Psychological History / Comment(s): NO MEDS NEEDED AT THIS TIME Smoking Status: Never smoker Past Alcohol Use History: None Reported Past Drug Use History: None Reported - Past Family History Mother Family Medical History: No Reported History <Mali Delaney - Last Filed: 03/05/23 17:34> General Exam <Mali Delaney - Last Filed: 03/05/23 17:34> General appearance: alert, in no apparent distress Head exam: Present: atraumatic, normocephalic, normal inspection Eye exam: Present: normal appearance, PERRL, EOMI. Absent: scleral icterus, conjunctival injection, periorbital swelling ENT exam: Present: normal exam, mucous membranes moist Neck exam: Present: normal inspection. Absent: tenderness, meningismus, lymphadenopathy Respiratory exam: Present: normal lung sounds bilaterally. Absent: respiratory distress, wheezes, rales, rhonchi, stridor Cardiovascular Exam: Present: regular rate, normal rhythm, normal heart sounds. Absent: systolic murmur, diastolic murmur, rubs, gallop, clicks GI/Abdominal exam: Present: soft, normal bowel sounds. Absent: distended, tenderness, guarding, rebound, rigid Extremities exam: Present: normal inspection, full ROM, normal capillary refill. Absent: tenderness, pedal edema, joint swelling, calf tenderness Back exam: Present: normal inspection Neurological exam: Present: alert, oriented X3, CN II-XII intact Psychiatric exam: Present: normal affect, normal mood Skin exam: Present: warm, dry, intact, normal color. Absent: rash <Alberto Frost - Last Filed: 03/16/23 17:57> - General Exam Comments Initial Comments: Visual Physical Exam General: Well-appearing, nontoxic, no acute distress. Head: Normocephalic, atraumatic Eyes: PERRLA, EOMI ENT: Airway patent Chest: Nonlabored breathing Skin: No visual rash, normal skin tone Neuro: Alert and oriented 3 Musculoskeletal: No gross abnormalities (Mali Delaney) Course <VivienneelvinAlberto B - Last Filed: 03/16/23 17:57> Vital Signs 03/05/23 03/05/23 03/05/23 17:45 19:12 22:14 Temperature 97.8 F Pulse Rate 81 86 79 Respiratory 20 18 16 Rate Blood Pressure 178/102 135/116 135/93 O2 Sat by Pulse 98 98 96 Oximetry - Reevaluation(s) Reevaluation #1: Medical records reviewed (Alberto Frost) Reevaluation #2: Patient symptoms are improved (Alberto Frost) Reevaluation #3: Patient informed of results questions answered (Alberto Frost) Reevaluation #4: Was pt. sent in by a medical professional or institution (, [facility], SEC REPORTING CONSULTANT, urgent care, hospital, or [facility]...) When possible be specific @ -no Did you speak to anyone other than the patient for history (EMS, parent, family, police, friend...)? What history was obtained from this source @ -no Did you review nursing and triage notes (agree or disagree)? Why? @ -agree Are old charts reviewed (outside hosp., previous admission, EMS record, old EKG, old radiological studies, urgent care reports/EKG's, [facility] records)? Report findings @ -yes Differential Diagnosis (chest pain, altered mental status, abdominal pain women, abdominal pain men, vaginal bleeding, weakness, fever, dyspnea, syncope, headache, dizziness, GI bleed, back pain, seizure, CVA, palpatations, mental health, musculoskeletal)? @ -prior EKG interpreted by me (3pts min.). @ -yes X-rays interpreted by me (1pt min.). @ -no CT interpreted by me (1pt min.). @ -Yes positive for left UVJ kidney stone U/S interpreted by me (1pt. min.). @ -no What testing was considered but not performed or refused? (CT, X-rays, U/S, labs)? Why? @ -none What meds were considered but not given or refused? Why? @ -none Did you discuss the management of the patient with other professionals (professionals i.e. Dr., PA, SEC REPORTING CONSULTANT, lab, RT, psych nurse, professor of social work, bottom loader, teacher, commanding officer garage, case management manager)? Give summary @ -no Was smoking cessation discussed for >3mins.? @ -no Were there social determinants of health that impacted care today? How? (Homelessness, low income, unemployed, alcoholism, drug addiction, transportation, low edu. Level, literacy, decrease access to med. care, snf, rehab)? @ -none Was there de-escalation of care discussed even if they declined (Discuss DNR or withdrawal of care, Hospice)? DNR status @ -no What co-morbidities impacted this encounter? (DM, HTN, Smoking, COPD, CAD, Cancer, CVA, ARF, Chemo, Hep., AIDS, mental health diagnosis, sleep apnea, morbid obesity)? @ -none Was patient admitted / discharged? Hospital course, mention meds given and route, prescriptions, significant lab abnormalities, going to OR and other pert inent info. @ - 53 female to ER for evaluation of flank pain kidney stone pain. Patient's pain is well-controlled currently and she can be discharged home Discharge Was critical care preformed (if so, how long)? @ -no Undiagnosed new problem with uncertain prognosis? @ -no Drug Therapy requiring intensive monitoring for toxicity (Heparin, Nitro, Insulin, Cardizem)? @ -no Were any procedures done? @ -no Diagnosis/symptom? @ -Left UVJ kidney stone Acute, or Chronic, or Acute on Chronic? @ -Acute Uncomplicated (without systemic symptoms) or Complicated (systemic symptoms)? @ -Complicated Side effects of treatment? @ -no Exacerbation, Progression, or Severe Exacerbation? @ -exacerbation Poses a threat to life or bodily function? How? (Chest pain, [place], [place], pneumonia, PE, COPD, DKA, ARF, appy, cholecystitis, CVA, Diverticulitis, Homicidal, Suicidal, threat to staff... and all critical care pts) @ -no (Alberto Frost) Reevaluation #5: Differential Back Pain: Strain, zoster, cauda equina syndrome, epidural abscess, vertebral osteomyeli tis, discitis, fracture, subluxation, disc herniation, DJD, spinal stenosis, dissection, AAA, pancreatitis, peptic ulcer disease, pyelonephritis, kidney stone, this is not meant to be an all-inclusive list. (Alberto Frost) Medical Decision Making <Mali Delaney - Last Filed: 03/05/23 17:34> - Lab Data Result diagrams: 03/05/23 19:02 03/05/23 19:02 - Radiology Data Radiology results: report reviewed (CT abdomen pelvis t does have left UVJ ki dney stone), image reviewed <Alberto Frost - Last Filed: 03/16/23 17:57> - Medical Decision Making I performed the quick note portion of the exam. Electronically signed by Mali Delaney PA-C (Mali Delaney) 53 female to ER for evaluation of flank pain kidney stone pain. Patient's pain is well-controlled currently and she can be discharged home (Alberto Frost) - Lab Data Lab Results 03/05/23 03/05/23 03/05/23 Range/Units 19:02 19:02 19:02 WBC 11.4 H (3.8-10.6) k/uL RBC 4.70 (3.80-5.40) m/uL Hgb 14.2 (11.4-16.0) gm/dL Hct 42.5 (34.0-46.0) % MCV 90.5 (80.0-100.0) fL MCH 30.2 (25.0-35.0) pg MCHC 33.4 (31.0-37.0) g/dL RDW 12.6 (11.5-15.5) % Plt Count 287 (150-450) k/uL MPV 9.0 Neutrophils % 88 % Lymphocytes % 9 % Monocytes % 3 % Eosinophils % 0 % Basophils % 0 % Neutrophils # 9.9 H (1.3-7.7) k/uL Lymphocytes # 1.0 (1.0-4.8) k/uL Monocytes # 0.3 (0-1.0) k/uL Eosinophils # 0.0 (0-0.7) k/uL Basophils # 0.0 (0-0.2) k/uL Sodium 136 L (137-145) mmol/L Potassium 4.5 (3.5-5.1) mmol/L Chloride 104 (98-107) mmol/L Carbon Dioxide 25 (22-30) mmol/L Anion Gap 7 mmol/L BUN 17 (7-17) mg/dL Creatinine 0.62 (0.52-1.04) mg/dL Est GFR (CKD-EPI)AfAm >90 (>60 ml/min/1.73 sqM) Est GFR (CKD-EPI)NonAf >90 (>60 ml/min/1.73 sqM) Glucose 132 H (74-99) mg/dL Plasma Lactic Acid Jourdan (0.7-2.0) mmol/L Calcium 9.5 (8.4-10.2) mg/dL Total Bilirubin 0.5 (0.2-1.3) mg/dL AST 24 (14-36) U/L ALT 18 (4-34) U/L Alkaline Phosphatase 89 (38-126) U/L Total Protein 7.5 (6.3-8.2) g/dL Albumin 4.5 (3.5-5.0) g/dL Amylase 51 (30-110) U/L Lipase 53 (23-300) U/L Urine Color Light Yellow Urine Appearance Cloudy H (Clear) Urine pH 5.5 (5.0-8.0) Ur Specific Solon 1.010 (1.001-1.035) Urine Protein Trace H (Negative) Urine Glucose (UA) Negative (Negative) Urine Ketones 1+ H (Negative) Urine Blood Large H (Negative) Urine Nitrite Negative (Negative) Urine Bilirubin Negative (Negative) Urine Urobilinogen <2.0 (<2.0) mg/dL Ur Leukocyte Esterase Trace H (Negative) Urine RBC >182 H (0-5) /hpf Urine WBC 3 (0-5) /hpf Ur Squamous Epith Cells <1 (0-4) /hpf Urine Bacteria Rare H (None) /hpf Hyaline Casts 2 (0-2) /lpf Urine Mucus Many H (None) /hpf 03/05/23 Range/Units 19:02 WBC (3.8-10.6) k/uL RBC (3.80-5.40) m/uL Hgb (11.4-16.0) gm/dL Hct (34.0-46.0) % MCV (80.0-100.0) fL MCH (25.0-35.0) pg MCHC (31.0-37.0) g/dL RDW (11.5-15.5) % Plt Count (150-450) k/uL MPV Neutrophils % % Lymphocytes % % Monocytes % % Eosinophils % % Basophils % % Neutrophils # (1.3-7.7) k/uL Lymphocytes # (1.0-4.8) k/uL Monocytes # (0-1.0) k/uL Eosinophils # (0-0.7) k/uL Basophils # (0-0.2) k/uL Sodium (137-145) mmol/L Potassium (3.5-5.1) mmol/L Chloride (98-107) mmol/L Carbon Dioxide (22-30) mmol/L Anion Gap mmol/L BUN (7-17) mg/dL Creatinine (0.52-1.04) mg/dL Est GFR (CKD-EPI)AfAm (>60 ml/min/1.73 sqM) Est GFR (CKD-EPI)NonAf (>60 ml/min/1.73 sqM) Glucose (74-99) mg/dL Plasma Lactic Acid Jourdan 1.2 (0.7-2.0) mmol/L Calcium (8.4-10.2) mg/dL Total Bilirubin (0.2-1.3) mg/dL AST (14-36) U/L ALT (4-34) U/L Alkaline Phosphatase (38-126) U/L Total Protein (6.3-8.2) g/dL Albumin (3.5-5.0) g/dL Amylase (30-110) U/L Lipase (23-300) U/L Urine Color Urine Appearance (Clear) Urine pH (5.0-8.0) Ur Specific Solon (1.001-1.035) Urine Protein (Negative) Urine Glucose (UA) (Negative) Urine Ketones (Negative) Urine Blood (Negative) Urine Nitrite (Negative) Urine Bilirubin (Negative) Urine Urobilinogen (<2.0) mg/dL Ur Leukocyte Esterase (Negative) Urine RBC (0-5) /hpf Urine WBC (0-5) /hpf Ur Squamous Epith Cells (0-4) /hpf Urine Bacteria (None) /hpf Hyaline Casts (0-2) /lpf Urine Mucus (None) /hpf Disposition <Mali Delaney - Last Filed: 03/05/23 17:34> Is patient prescribed a controlled substance at d/c from ED?: No Time of Disposition: 21:00 <Alberto Frost - Last Filed: 03/16/23 17:57> Clinical Impression: Kidney stone, Left ureteral calculus, Anxiety Disposition: HOME SELF-CARE Condition: Good Instructions (If sedation given, give patient instructions): Kidney Stones (ED) Referrals: Marcial Prescott DO [Primary Care Provider] - 1-2 days Shashi Arnold MD [STAFF PHYSICIAN] - 1-2 days
[2023-03-05 17:59] VITALS: TEMP 97.8
[2023-03-05] MEDS ORDERED: SODIUM CHLORIDE 0.9% 1,000 ML IV STA (18:50)
[2023-03-05] MEDS ORDERED: KETOROLAC 15 MG/ML 1 ML VIAL IVP STA (18:50)
--- NOTE | 2023-03-05 19:27 | CT ---
EXAMINATION TYPE: CT abdomen pelvis wo con DATE OF EXAM: 03/05/2023 COMPARISON: 07/18/2022 HISTORY: Left side flank pain CT DLP: 1081.4 mGycm Examination of the solid and hollow viscera is limited given the lack of contrast. FINDINGS: LUNG BASES: No evidence for nodule. No evidence for infiltrate. LIVER/GB: The gallbladder is unremarkable. No space-occupying hepatic lesion. PANCREAS: No pancreatic mass identified. No inflammatory process seen. SPLEEN: No evidence for splenomegaly. No intrasplenic lesions seen. ADRENALS: No adrenal nodules identified. No evidence for thickening. KIDNEYS: Moderate to severe left-sided hydronephrosis extending to the distal left ureter where there is a 4 mm calculus approximately 5 cm from the left UVJ. No evidence of right-sided hydronephrosis. No renal masses present. Small calculi lower pole of both kidneys measuring less than 3 mm. BOWEL: Appendix has a normal appearance. No evidence of bowel obstruction. No inflammatory process. Lymph nodes: No evidence for adenopathy greater than 1 cm. Abdominal aorta: Atheromatous changes seen. No evidence for aneurysm. Genital organs: No significant abnormality. Other: No significant abnormality. IMPRESSION: Moderate to severe left-sided hydronephrosis extending to the distal left ureter where there is a 4 m m calculus approximately 5 cm from the left UVJ.
[2023-03-05 20:04] LABS: Basophils % (A) 0 %; Eosinophils % (A) 0 %; HCT 42.5 % (34.0-46.0); HGB 14.2 gm/dL (11.4-16.0); Lymphocytes % (A) 9 %; MCH 30.2 pg (25.0-35.0); MCHC 33.4 g/dL (31.0-37.0); MCV 90.5 fL (80.0-100.0); Monocytes # (A) 0.3 k/uL (0-1.0); Monocytes % (A) 3 %; Neutrophils # (A) 9.9 k/uL (1.3-7.7); Neutrophils % (A) 88 %; Platelet Count 287 k/uL (150-450); RDW 12.6 % (11.5-15.5); WBC 11.4 k/uL (3.8-10.6)
[2023-03-05 20:14] LABS: ALT 18 U/L (4-34); AST 24 U/L (14-36); African American GFR (CKD) >90 (>60 ml/min/1.73 sqM); Albumin 4.5 g/dL (3.5-5.0); Alkaline Phosphatase 89 U/L (38-126); Amylase 51 U/L (30-110); Anion Gap 7 mmol/L; Blood Urea Nitrogen 17 mg/dL (7-17); Calcium 9.5 mg/dL (8.4-10.2); Carbon Dioxide 25 mmol/L (22-30); Chloride 104 mmol/L (98-107); Glucose 132 mg/dL (74-99); Lipase 53 U/L (23-300); Non-African American GFR(CKD) >90 (>60 ml/min/1.73 sqM); Potassium 4.5 mmol/L (3.5-5.1); Sodium 136 mmol/L (137-145); Total Bilirubin 0.5 mg/dL (0.2-1.3); Total Protein 7.5 g/dL (6.3-8.2)
[2023-03-05] MEDS ORDERED: MORPHINE SULFATE 4 MG/ML SYRINGE IVP STA (21:12)
[2023-03-05] MEDS ORDERED: IBUPROFEN 600 MG STARTER PACK 4 TAB BTL PO STA (21:12)
[2023-03-05] MEDS ORDERED: TAMSULOSIN 0.4 MG CAP.ER.24H PO STA (21:12)
[2023-03-05] MEDS ORDERED: traMADol 50 MG STARTER PACK 3 TAB BTL PO STA (21:12)
[2023-03-05] MEDS ORDERED: ONDANSETRON 4 MG ODT STARTER PACK 2 TAB BTL PO STA (21:12)
[2023-03-05 21:39] LABS: Appearance,Urine Cloudy (Clear); Bacteria,Urine Rare /hpf; Bilirubin,Urine Negative (Negative); Blood,Urine Large (Negative); Color,Urine Light Yellow; Glucose,Urine (UA) Negative (Negative); Hyaline Casts,Urine 2 /lpf (0-2); Ketones,Urine 1+ (Negative); Leukocyte Esterase,Urine Trace (Negative); Mucus,Urine Many /hpf; Nitrite,Urine Negative (Negative); PH, Urine 5.5 (5.0-8.0); Protein,Urine Trace (Negative); RBC,Urine >182 /hpf (0-5); Squamous Epithelial Cell,Urine <1 /hpf (0-4); Urobilinogen,Urine <2.0 mg/dL (<2.0); WBC,Urine 3 /hpf (0-5)
[2023-03-05 22:28] VITALS: BP 135/93; PULSE 79; RESP 16
== END 2023-03-05 22:15 | disposition home or self-care (01) ==
LOC: EC 16:54
DX: N13.2 Hydronephrosis with renal and ureteral calculous obstruction (principal); F41.9 Anxiety disorder, unspecified; I10 Essential (primary) hypertension; Z79.899 Other long term (current) drug therapy
CPT/HCPCS: 99284; 96374; 96375; 36415; 80053; 82150; 83605; 83690; 85025; 81001; 74176; J2270; J1885; S0119

== ENCOUNTER → 2023-03-29 | Outpatient (CLI) | payer BC ==
[2023-03-29 10:53] LABS: Appearance,Urine Cloudy (Clear); Bilirubin,Urine Negative (Negative); Blood,Urine Large (Negative); Color,Urine Yellow (Yellow); Ketones,Urine Negative (Negative); Nitrite,Urine Negative (Negative); Specific Gravity,Urine 1.024 (1.001-1.030); Urobilinogen,Urine 0.2 E.U./DL
[2023-03-29 10:58] LABS: Basophils # (A) 0.04 X 10*3/uL (0.00-0.10); Basophils % (A) 0.6 %; Eosinophils # (A) 0.12 X 10*3/uL (0.04-0.35); Eosinophils % (A) 1.8 %; HCT 41.1 % (37.2-46.3); HGB 13.5 g/dL (12.0-15.0); Lymphocytes # (A) 2.15 X 10*3/uL (0.90-5.00); Lymphocytes % (A) 32.3 %; MCH 29.8 pg (27.0-32.0); MCHC 32.8 g/dL (32.0-37.0); MCV 90.7 FL (80.0-97.0); Monocytes # (A) 0.53 X 10*3/uL (0.20-1.00); NRBC Per 100 WBC 0 X 10*3/uL (0.00-0.01); Neutrophils # (A) 3.78 X 10*3/uL (1.80-7.70); Neutrophils % (A) 56.8 %; Platelet Count 256 X 10*3/uL (140-440); RBC 4.53 X 10*6/uL (4.10-5.20); RDW 12.9 % (11.5-14.5); WBC 6.65 X 10*3/uL (4.50-10.00)
[2023-03-29 11:15] LABS: Blood Urea Nitrogen 21.2 mg/dL (9.0-27.0); Calcium 9.6 mg/dL (8.7-10.3); Carbon Dioxide 24.4 mmol/L (21.6-31.8); Chloride 104 mmol/L (96-109); Glucose 112 mg/dL (70-110); Potassium 4.4 mmol/L (3.5-5.5); Sodium 140 mmol/L (135-145)
[2023-03-29 12:15] LABS: Bacteria,Urine None Seen (None Seen); Calcium Oxalate Crystals,Urine Present (None Seen)
== END | disposition home or self-care (01) ==
LOC: LABPAT 07:49
PROVIDERS: ATTEND Urology
DX: Z01.812 Encounter for preprocedural laboratory examination (principal); N20.1 Calculus of ureter
CPT/HCPCS: 36415; 80048; 81001; 85025; 87086

== ENCOUNTER 2023-04-01 12:18 | Day surgery (SDC) | payer BC ==
[2023-03-29 10:02] VITALS: BMI 33.2
--- NOTE | 2023-04-01 07:18 | P.HPIHPCON ---
History of Present Illness H&P Date: 04/01/23 Chief Complaint: Left ureteral stone This is a 53-year-old female with a history of a 5 mm left-sided ureteral stone, she has failed medical expulsive therapy. Discussed with her option of left- sided ureteroscopy with holmium laser. Risk which includes but not limited to b leeding, infection, injury to the ureter were discussed. She understood all the risk and agreed to proceed Consent for Procedure: I have explained the operation/procedure to the patient, including the risks, benefits, side effects, alternative therapies (including not receiving the proposed treatment or service), the likelihood of the patient achieving his/her goals, and potential recuperation problems for the procedure/sedation/analgesia, as well as any blood products, if indicated. I also explained to the patient the risks, benefits and side effects of the alternatives, as well as the risks related to not receiving the proposed procedure, care, treatment, or services. Past Medical History Past Medical History: Hypertension, Osteoarthritis (OA) Additional Past Medical History / Comment(s): KIDNEY STONES. HEADACHES DUE TO INFLAMED NERVE IN NECK-C5-C6 BULGING DISCS History of Any Multi-Drug Resistant Organisms: None Reported Additional Past Surgical History / Comment(s): kidney stone removal. COLONOSCOPY Past Anesthesia/Blood Transfusion Reactions: No Reported Reaction Smoking Status: Never smoker - Past Family History Mother Family Medical History: No Reported History Medications and Allergies Home Medications Medication Instructions Recorded Confirmed Type Losartan Potassium 100 mg PO DAILY 03/01/22 03/29/23 History Butalb/APAP/Caff 50-325-40Mg 1 tab PO Q4H PRN #10 tablet 09/06/22 03/29/23 Rx [Fioricet 50-325-40] Naproxen [Naprosyn] 500 mg PO DAILY 09/28/22 03/29/23 History Allergies Allergy/AdvReac Type Severity Reaction Status Date / Time No Known Allergies Allergy Verified 03/29/23 09:32 Surgical - Exam - General no distress, no pain - Eyes normal ocular movement, no pale - ENT normal nares, normal mucosa - Respiratory normal expansion, normal respiratory effort - Abdomen Abdomen: soft, non tender Assessment and Plan Assessment: OR for left-sided ureteroscopy, holmium laser lithotripsy, stone basketing and stent insertion
[2023-04-01] MEDS: LACTATED RINGERS 1,000 ML IV ONE (13:10)
--- NOTE | 2023-04-01 13:19 | XR ---
EXAMINATION TYPE: XR KUB DATE OF EXAM: 04/01/2023 12:33 PM CLINICAL INDICATION:Female, 53 years old with history of Cystoscopy Lithotripsy surgical; COMPARISON: 03/05/2023 TECHNIQUE: One radiographic view of the abdomen was obtained. FINDINGS: The bowel gas pattern is nonspecific without dilated loops of small or large bowel. There i s no evidence for organomegaly or pneumoperitoneum. The osseous structures are intact. No abnormal calcifications are present. Fecal material and gas are demonstrated throughout the colon and rectum. Scattered calcifications in the left pelvis some in the area of prior obstructing distal ureteral lily culus. IMPRESSION: 1. No renal calculi definitively visualized. Distal left ureteral calculus seen on prior CT correspo nd with desiccation the pelvis versus pelvic phlebolith. Consider follow-up CT. 2. Nonspecific bowel gas pattern without radiographic evidence for acute process.
[2023-04-01] MEDS: MIDAZOLAM 2 MG/2 ML VIAL IVP ONE (13:25)
[2023-04-01] MEDS ORDERED: ONDANSETRON 4 MG/2 ML VIAL ONE (14:14)
[2023-04-01] MEDS: DEXAMETHASONE SOD PHOSPHATE 4 MG/ML 1 ML VIAL IVP ONE (14:18)
[2023-04-01] MEDS: ONDANSETRON 4 MG/2 ML VIAL IVP ONE (14:19)
[2023-04-01] MEDS ORDERED: KETOROLAC 15 MG/ML 1 ML VIAL ONE (15:06)
[2023-04-01] MEDS ORDERED: LIDOCAINE 1% INJ 10MG/ML (20 ML MDV) ONE (15:06)
[2023-04-01] MEDS ORDERED: fentaNYL (PF) 50 MCG/ML 2 ML AMP ONE (15:06)
[2023-04-01] MEDS ORDERED: PROPOFOL 10 MG/ML 20 ML VIAL IV ONE (15:06)
--- NOTE | 2023-04-01 15:41 | P.OP ---
Date of Procedure: 04/01/23 Preoperative Diagnosis: Left ureteral stone Postoperative Diagnosis: Same Procedure(s) Performed: Cystoscopy, left ureteroscopy, holmium laser lithotripsy, stone basketing and stent insertion Implants: 6 English by 26 cm stent to the left ureter Anesthesia: JANAE Surgeon: Douglas Farrell Estimated Blood Loss (ml): 5 Pathology: other (left ureteral stone) Condition: stable Disposition: PACU Indications for Procedure: This is a 53-year-old female with a history of a 5 mm left-sided ureteral stone, she has failed medical expulsive therapy. Discussed with her option of left- sided ureteroscopy with holmium laser. Risk which includes but not limited to b leeding, infection, injury to the ureter were discussed. She understood all the risk and agreed to proceed Operative Findings: Left distal ureteral stone Description of Procedure: Patient brought to the operating room, general anesthesia was induced. She was prepped and draped in sterile fashion placed in dorsolithotomy position. Cystoscopy through the 21 English sheath was inserted per urethra, cystoscopy was performed which showed no abnormality within the bladder. Attention was then carried to the left ureteral orifice, semirigid ureteroscope was advanced per urethra and up the left ureteral orifice, at this point a stone was encountered in the UVJ. Using the holmium laser the stone was fragmented, sizable stone fragments were removed and sent for analysis using the stone basket. This time the ureteroscope was advanced past the stone area and into the proximal ureter, ureteroscopy was performed which showed no injury to to the ureter or any additional stones, pullback ureteroscopy was performed showed no sizable fragments or injury to the ureter. There was edema at the UVJ. as ureteroscope was withdrawn and a sensor wire was advanced through. Next a ureteral stent was passed over the wire, the proximal curl was visualized under fluoroscopy and the distal curl was visualized using the cystoscope. The bladder was emptied at the end of the case. Patient tolerated procedure well taken to recovery in stable condition
[2023-04-01 16:05] VITALS: TEMP 97.3
[2023-04-01 16:33] VITALS: RESP 16
[2023-04-01 17:01] VITALS: BP 123/84; PULSE 66
--- NOTE | 2023-04-01 21:15 | FL ---
EXAMINATION TYPE: FL guidance operating room DATE OF EXAM: 04/01/2023 Comparison: None Clinical History: 53-year-old female CYSTO LITHO Findings: Left stent placement-1 sec FL-DAP [id number] mGym2. No images submitted. Impression: Fluoroscopy for urology procedure as above.
== END 2023-04-01 17:30 | disposition home or self-care (01) ==
LOC: OR 12:18
PROVIDERS: ATTEND Urology
DX: N20.1 Calculus of ureter (principal); Z87.442 Personal history of urinary calculi; Z79.899 Other long term (current) drug therapy; Z79.1 Long term (current) use of non-steroidal anti-inflammatories (NSAID)
CPT/HCPCS: 81025; 82365; 74018; 52356; C2625; C1769; J2250; J1100; J0690; J2405; J2001; J3010; J1885; J2704

== ENCOUNTER 2023-04-08 15:54 | Emergency (ER) | payer BC ==
[2023-04-08 18:51] LABS: Basophils % (A) 0 %; Eosinophils # (A) 0.1 k/uL (0-0.7); Eosinophils % (A) 1 %; HCT 40.3 % (34.0-46.0); HGB 13.8 gm/dL (11.4-16.0); Lymphocytes # (A) 2.6 k/uL (1.0-4.8); Lymphocytes % (A) 30 %; MCHC 34.1 g/dL (31.0-37.0); Mean Platelet Volume 9.2; Monocytes # (A) 0.5 k/uL (0-1.0); Monocytes % (A) 6 %; Neutrophils # (A) 5.4 k/uL (1.3-7.7); Neutrophils % (A) 62 %; Platelet Count 246 k/uL (150-450); RBC 4.44 m/uL (3.80-5.40); RDW 12.9 % (11.5-15.5); WBC 8.7 k/uL (3.8-10.6)
[2023-04-08 18:55] LABS: Appearance,Urine Cloudy (Clear); Bacteria,Urine Rare /hpf; Bilirubin,Urine Negative (Negative); Blood,Urine Moderate (Negative); Color,Urine Colorless; Glucose,Urine (UA) Negative (Negative); Ketones,Urine 1+ (Negative); Leukocyte Esterase,Urine Large (Negative); Mucus,Urine Few /hpf; Nitrite,Urine Negative (Negative); PH, Urine 5.5 (5.0-8.0); Protein,Urine 1+ (Negative); RBC,Urine 171 /hpf (0-5); Specific Gravity,Urine 1.006 (1.001-1.035); Squamous Epithelial Cell,Urine 3 /hpf (0-4); Urobilinogen,Urine <2.0 mg/dL (<2.0); WBC,Urine 27 /hpf (0-5)
[2023-04-08 19:06] LABS: ALT 13 U/L (4-34); African American GFR (CKD) >90 (>60 ml/min/1.73 sqM); Albumin 4.3 g/dL (3.5-5.0); Anion Gap 7 mmol/L; Blood Urea Nitrogen 17 mg/dL (7-17); Calcium 9.6 mg/dL (8.4-10.2); Carbon Dioxide 24 mmol/L (22-30); Chloride 105 mmol/L (98-107); Glucose 110 mg/dL (74-99); Non-African American GFR(CKD) >90 (>60 ml/min/1.73 sqM); Sodium 136 mmol/L (137-145); Total Bilirubin 0.8 mg/dL (0.2-1.3); Total Protein 6.9 g/dL (6.3-8.2)
[2023-04-08 19:39] LABS: AST 23 U/L (14-36); Alkaline Phosphatase 73 U/L (38-126); Potassium 4.1 mmol/L (3.5-5.1)
[2023-04-08 19:43] VITALS: BP 145/83; PULSE 75; RESP 18; TEMP 97.7
--- NOTE | 2023-04-08 19:50 | ED ---
General Adult HPI - General Chief complaint: Abdominal Pain Stated complaint: post op complications Time Seen by Provider: 04/08/23 17:00 Source: patient, RN notes reviewed, old records reviewed Mode of arrival: ambulatory Limitations: no limitations - History of Present Illness Initial comments: This a 53-year-old female who presents to the emergency department complaining that she is having some hematuria. Patient states she just recently had a stent placed in her left ureter and initially she felt okay but lately she feels a burning down in her vaginal area and feels as though something might be protruding from her vagina especially when she stands up. Patient states lying down right now she has no pain or that discomfort but at work today all day she felt like there was something there. Patient denies any fever or chills. Patient denies any burning when she urinates. Patient states the burning is there all the time when she is sitting up or walking around. - Related Data Home Medications Medication Instructions Recorded Confirmed Losartan Potassium 100 mg PO DAILY 03/01/22 04/01/23 Naproxen [Naprosyn] 500 mg PO DAILY 09/28/22 03/29/23 Previous Rx's Medication Instructions Recorded Butalb/APAP/Caff 50-325-40Mg 1 tab PO Q4H PRN #10 tablet 09/06/22 [Fioricet 50-325-40] Cephalexin [Keflex] 500 mg PO Q8HR #9 cap 04/01/23 Ketorolac [Toradol] 10 mg PO Q6HR PRN #15 tab 04/01/23 Cephalexin [Keflex] 500 mg PO Q6HR #28 cap 04/08/23 Allergies Allergy/AdvReac Type Severity Reaction Status Date / Time No Known Allergies Allergy Verified 04/08/23 16:16 Review of Systems ROS Statement: Those systems with pertinent positive or pertinent negative responses have been documented in the HPI. ROS Other: All systems not noted in ROS Statement are negative. Past Medical History Past Medical History: Hypertension, Osteoarthritis (OA) Additional Past Medical History / Comment(s): KIDNEY STONES. HEADACHES DUE TO INFLAMED NERVE IN NECK History of Any Multi-Drug Resistant Organisms: None Reported Additional Past Surgical History / Comment(s): kidney stone removal Past Anesthesia/Blood Transfusion Reactions: No Reported Reaction Past Psychological History: Anxiety Smoking Status: Never smoker - Past Family History Mother Family Medical History: No Reported History General Exam - General Exam Comments Initial Comments: GENERAL: Patient is well-developed and well-nourished. Patient is nontoxic and well- hydrated and is in mild distress. ENT: Neck is soft and supple. No significant lymphadenopathy is noted. Oropharynx is clear. Moist mucous membranes. Neck has full range of motion without eliciting any pain. EYES: The sclera were anicteric and conjunctiva were pink and moist. Extraocular movements were intact and pupils were equal round and reactive to light. Eyelids were unremarkable. PULMONARY: Unlabored respirations. Good breath sounds bilaterally. No audible rales rhonchi or wheezing was noted. CARDIOVASCULAR: There is a regular rate and rhythm without any murmurs gallops or rubs. ABDOMEN: Soft and nontender with normal bowel sounds. No palpable organomegaly was noted. There is no palpable pulsatile mass. GENITALIA: I get a bimanual exam and pelvic exam I did not see any cystocele rectocele or uterine prolapse. There was no area of tenderness I did not note any area of swelling SKIN: Skin is clear with no lesions or rashes and otherwise unremarkable. NEUROLOGIC: Patient is alert and oriented x3. Cranial nerves II through XII are grossly intact. Motor and sensory are also intact. Normal speech, volume and content. Symmetrical smile. MUSCULOSKELETAL: Normal extremities with adequate strength and full range of motion. LYMPHATICS: No significant lymphadenopathy is noted PSYCHIATRIC: Normal psychiatric evaluation. Limitations: no limitations Course Vital Signs 04/08/23 04/08/23 16:13 19:27 Temperature 98.1 F 97.7 F Pulse Rate 85 75 Respiratory 16 18 Rate Blood Pressure 156/103 145/83 O2 Sat by Pulse 99 98 Oximetry Medical Decision Making - Medical Decision Making Was pt. sent in by a medical professional or institution (, PA, [facility], urgent care, hospital, or correction...) When possible be specific @ -No Did you speak to anyone other than the patient for history (EMS, parent, family, police, friend...)? What history was obtained from this source @ -No Did you review nursing and triage notes (agree or disagree)? Why? @ -I reviewed and agree with nursing and triage notes Were old charts reviewed (outside hosp., previous admission, EMS record, old EKG, old radiological studies, urgent care reports/EKG's, correction records)? Report findings @ -No old charts were reviewed Differential Diagnosis (chest pain, altered mental status, abdominal pain women, abdominal pain men, vaginal bleeding, weakness, fever, dyspnea, syncope, headache, dizziness, GI bleed, back pain, seizure, CVA, palpatations, mental health, musculoskeletal)? @ -Abscess, rectocele, cystocele, prolapse uterus, this is not an all-inclusive list. EKG interpreted by me (3pts min.). @ -As above X-rays interpreted by me (1pt min.). @ -None done CT interpreted by me (1pt min.). @ -None done U/S interpreted by me (1pt. min.). @ -None done What testing was considered but not performed or refused? (CT, X-rays, U/S, labs)? Why? @ -None What meds were considered but not given or refused? Why? @ -None Did you discuss the management of the patient with other professionals (professionals i.e. , PA, [facility], lab, RT, psych nurse, social service liaison, machine strap buckler, teacher, court collections officer, medical case manager)? Give summary @ -No Was smoking cessation discussed for >3mins.? @ -No Was critical care preformed (if so, how long)? @ -No Were there social determinants of health that impacted care today? How? (Homelessness, low income, unemployed, alcoholism, drug addiction, transportation, low edu. Level, literacy, decrease access to med. care, residential, rehab)? @ -No Was there de-escalation of care discussed even if they declined (Discuss DNR or withdrawal of care, Hospice)? DNR status @ -No What co-morbidities impacted this encounter? (DM, HTN, Smoking, COPD, CAD, Cancer, CVA, ARF, Chemo, Hep., AIDS, mental health diagnosis, sleep apnea, morb id obesity)? @ -None Was patient admitted / discharged? Hospital course, mention meds given and rout e, prescriptions, significant lab abnormalities, going to OR and other pertinent info. @ -Patient's blood work came back relatively normal. Patient urine showed some red cells with 27 white cells and rare.. Patient will be started on antibiotics and given a dose prior to her leaving. Patient has an appointment with [facility] in 5 days and she will follow-up with them for the symptoms she is instructed to come back to the emergency department if things worsen or she starts having a fever or other any new symptoms. Undiagnosed new problem with uncertain prognosis? @ -No Drug Therapy requiring intensive monitoring for toxicity (Heparin, Nitro, Insulin, Cardizem)? @ -No Were any procedures done? @ -No Diagnosis/symptom? @ -Hematuria Acute, or Chronic, or Acute on Chronic? @ -Acute Uncomplicated (without systemic symptoms) or Complicated (systemic symptoms)? @ -Uncomplicated Side effects of treatment? @ -No Exacerbation, Progression, or Severe Exacerbation? @ -No Poses a threat to life or bodily function? How? (Chest pain, USA, DC, pneumonia, PE, COPD, DKA, ARF, appy, cholecystitis, CVA, Diverticulitis, Homicidal, Suicidal, threat to staff... and all critical care pts) @ -No Diagnosis/symptom? @ -Pelvic fullness Acute, or Chronic, or Acute on Chronic? @ -Acute Uncomplicated (without systemic symptoms) or Complicated (systemic symptoms)? @ -Uncomplicated Side effects of treatment? @ -None Exacerbation, Progression, or Severe Exacerbation] @ -No Poses a threat to life or bodily function? @ -No Diagnosis/symptom? @ -Urinary tract infection Acute, or Chronic, or Acute on Chronic? @ -Acute Uncomplicated (without systemic symptoms) or Complicated (systemic symptoms)? @ -Uncomplicated Side effects of treatment? @ -None Exacerbation, Progression, or Severe Exacerbation] @ -No Poses a threat to life or bodily function? @ -No - Lab Data Result diagrams: 04/08/23 18:39 04/08/23 18:39 Lab Results 04/08/23 04/08/23 04/08/23 Range/Units 18:39 18:39 18:39 WBC 8.7 (3.8-10.6) k/uL RBC 4.44 (3.80-5.40) m/uL Hgb 13.8 (11.4-16.0) gm/dL Hct 40.3 (34.0-46.0) % MCV 91.0 (80.0-100.0) fL MCH 31.0 (25.0-35.0) pg MCHC 34.1 (31.0-37.0) g/dL RDW 12.9 (11.5-15.5) % Plt Count 246 (150-450) k/uL MPV 9.2 Neutrophils % 62 % Lymphocytes % 30 % Monocytes % 6 % Eosinophils % 1 % Basophils % 0 % Neutrophils # 5.4 (1.3-7.7) k/uL Lymphocytes # 2.6 (1.0-4.8) k/uL Monocytes # 0.5 (0-1.0) k/uL Eosinophils # 0.1 (0-0.7) k/uL Basophils # 0.0 (0-0.2) k/uL Sodium 136 L (137-145) mmol/L Potassium 4.1 (3.5-5.1) mmol/L Chloride 105 (98-107) mmol/L Carbon Dioxide 24 (22-30) mmol/L Anion Gap 7 mmol/L BUN 17 (7-17) mg/dL Creatinine 0.61 (0.52-1.04) mg/dL Est GFR (CKD-EPI)AfAm >90 (>60 ml/min/1.73 sqM) Est GFR (CKD-EPI)NonAf >90 (>60 ml/min/1.73 sqM) Glucose 110 H (74-99) mg/dL Calcium 9.6 (8.4-10.2) mg/dL Total Bilirubin 0.8 (0.2-1.3) mg/dL AST 23 (14-36) U/L ALT 13 (4-34) U/L Alkaline Phosphatase 73 (38-126) U/L Total Protein 6.9 (6.3-8.2) g/dL Albumin 4.3 (3.5-5.0) g/dL Urine Color Colorless Urine Appearance Cloudy H (Clear) Urine pH 5.5 (5.0-8.0) Ur Specific [place] 1.006 (1.001-1.035) Urine Protein 1+ H (Negative) Urine Glucose (UA) Negative (Negative) Urine Ketones 1+ H (Negative) Urine Blood Moderate H (Negative) Urine Nitrite Negative (Negative) Urine Bilirubin Negative (Negative) Urine Urobilinogen <2.0 (<2.0) mg/dL Ur Leukocyte Esterase Large H (Negative) Urine RBC 171 H (0-5) /hpf Urine WBC 27 H (0-5) /hpf Ur Squamous Epith Cells 3 (0-4) /hpf Urine Bacteria Rare H (None) /hpf Urine Mucus Few H (None) /hpf Disposition Clinical Impression: Pelvic fullness, Urinary tract infection, Hematuria Disposition: HOME SELF-CARE Condition: Good Instructions (If sedation given, give patient instructions): Hematuria (ED), Cystocele (ED), Rectocele (ED), Uterine Prolapse (ED) Prescriptions: Cephalexin [Keflex] 500 mg PO Q6HR #28 cap Is patient prescribed a controlled substance at d/c from ED?: No Referrals: Marcial Prescott DO [Primary Care Provider] - 1-2 days Time of Disposition: 19:49
[2023-04-08] MEDS: cefTRIAXone IN SWFI 1,000 MG/10 ML SYRINGE IVP STA (20:13)
== END 2023-04-08 20:26 | disposition home or self-care (01) ==
LOC: EC 15:54
DX: N39.0 Urinary tract infection, site not specified (principal); I10 Essential (primary) hypertension; M19.90 Unspecified osteoarthritis, unspecified site; F41.9 Anxiety disorder, unspecified; Z79.1 Long term (current) use of non-steroidal anti-inflammatories (NSAID); Z79.899 Other long term (current) drug therapy
CPT/HCPCS: 36415; 80053; 85025; 81001; 99284; 96374; J0696

== ENCOUNTER → 2023-10-20 | Outpatient (CLI) | payer BC ==
--- NOTE | 2023-10-24 12:35 | MM ---
Reason for Exam: Screening (asymptomatic). Last mammogram was performed 1 year(s) and 1 month(s) ago. Patient History: Menarche at age 13. First Full-Term at age 23. Last menstrual period: 10/03/2023 Risk Values: Nessa 5 year model risk: 0.9%. NCI Lifetime model risk: 7.8%. Prior Study Comparison: 03/07/2012 Bilateral Diagnostic Mammogram, [facility]. 03/08/2013 Bilateral Screening Mammogram, [facility]. 09/15/2022 Bilateral MG 3D screening mammo w/cad, [facility]. Tissue Density: There are scattered areas of fibroglandular density. Findings: Analyzed By CAD. Right breast: There is no suspicious group of microcalcifications or new suspicious mass. Left breast: There is no suspicious group of microcalcifications or new suspicious mass. Overall Assessment: Negative, BI-RAD 1 Management: Screening Mammogram of both breasts in [address] [facility] will attempt to contact patient to return for supplemental views and ultrasound if indicated. Patient should continue monthly self-breast exams. A clinical breast exam by your physician is recommended on an annual basis. This exam should not preclude additional follow-up of suspicious palpable abnormalities. Note on Nessa scores and lifetime risk: 1. A Nessa score greater than 3% is considered moderate risk. If this is the case, consider specialist referral to assess eligibility for a risk reducing agent. 2. If overall lifetime risk for the development of breast cancer is 20% or higher, the patient may qualify for future screening with alternating mammogram and breast MRI. Electronically signed and approved by: Moisés Reyes DO
== END | disposition home or self-care (01) ==
LOC: RADMAMWWP 16:02
PROVIDERS: ATTEND Family Medicine
DX: Z12.31 Encounter for screening mammogram for malignant neoplasm of breast
CPT/HCPCS: 77063; 77067